=== PATIENT | male | born 1945 | race Two or more races ===

== ENCOUNTER 2019-02-23 17:33 | Inpatient (IN) | payer MEDICARE, MEDICAID ==
--- NOTE | 2018-03-13 18:30 | NUR ---
JANETTE DRAINAGE TOTAL DRAINAGE FOR THE SHIFT IS 160ML DARK GREEN FLUID. Addendum: 03/14/19 at 2004 by Isatu Morrow RN DISREGARD DATE CORRECT DATE IS 03/13/19
[~2019-02-23] VITALS: Ht 180.3 cm; Wt 69.1 kg
[2019-02-23 19:42] LABS: Basophils # (auto) 0 uL; Basophils % (auto) 0.4 % (0.0-2.0); Eosinophils # (auto) 0.2 uL; Eosinophils % (auto) 1.8 % (0.0-7.0); Hematocrit 29.1 % (41.0-53.0); Hemoglobin 9.6 g/dL (13.5-17.5); Lymphocytes # (auto) 0.9 uL; Lymphocytes % (auto) 7.2 % (10.0-50.0); Mean Corpuscular Hemoglobin 28.2 pg (28.0-32.0); Mean Corpuscular Volume 85.5 fL (80.0-100.0); Monocytes # (auto) 0.9 uL; Monocytes % (auto) 6.7 % (0.0-12.0); Neutrophils # (auto) 10.8 uL; Neutrophils % (auto) 83.9 % (37.0-80.0); Platelet Count (auto) 383 10^3/uL (140-450); Red Cell Distribution Width 15.1 % (11.8-14.3); White Blood Cell 12.9 10^3/uL (4.4-10.8)
[2019-02-23 20:00] LABS: Albumin 2.9 g/dL (3.4-5.0); Calcium 8.9 mg/dL (8.5-10.1)
[2019-02-23 20:03] LABS: BUN/Creatinine Ratio 19.8; Bilirubin, Total 0.5 mg/dL (0.2-1.0)
[2019-02-23] MEDS ORDERED: ONDANSETRON HCL 4 MG/2 ML VIAL IV ONE (20:15)
[2019-02-23] MEDS ORDERED: MORPHINE SULF INJ 2 MG/ML SYRINGE 1ML IV ONE (20:15)
[2019-02-23 21:06] LABS: Amylase 29 U/L (25-115); Lipase 62 U/L (73-393)
[2019-02-23] MEDS ORDERED: cefTRIAXone 1GM/50ML D5W 50 ML IV ONE (22:00)
[2019-02-23] MEDS ORDERED: PIPERACILLIN-TAZOB 3.375GM 100 ML IV ONE (22:00)
[2019-02-23] MEDS ORDERED: SODIUM CHLORIDE 0.9% 1,000 ML IV ONE (22:00)
[2019-02-24] MEDS: SODIUM CHLORIDE 0.9% 1,000 ML IV SCH ×2 (01:06→03:00)
[2019-02-24 02:44] VITALS: BP 127/67
--- NOTE | 2019-02-24 02:44 | NUR ---
PATIENT ARRIVED ON UNIT VIA WHEELCHAIR. HE WAS VERY UNSTEADY ON FEET SO HE WAS HELPED INTO BED. HE IS AO X 4 ON ROOM AIR. HAS COMPLAINTS OF PAIN IN THE LOWER RIGHT ABDOMEN BUT NO REQUEST FOR PAIN MEDICATION. HE IS AWARE OF HIS NPO STATUS. HE'S AWARE OF HIS CURRENT PLAN OF CARE. HE UNDERSTANDS TO USE CALL LIGHT IF IN NEED OF ASSISTANCE. WILL CONTINUE TO MONITOR.
[2019-02-24 02:50] VITALS: BP 127/67
[2019-02-24] MEDS: ACETAMINOPHEN 325 MG TAB PO PRN ×2 (03:00→13:46)
[2019-02-24] MEDS: metroNIDAZOLE 500MG/100ML 100 ML IV SCH ×3 (05:45→21:34)
--- NOTE | 2019-02-24 08:11 | NUR ---
opening patient in bed, asleep, family at bedside, no distress noted at this time. Current sodium 135 bun 22 Pending Surgical, GI, Hematology/oncology consults US of gallbladder is pending as well Will f/u with morning assessment and continue to monitor patient.
[2019-02-24 08:13] LABS: Basophils # (auto) 0.1 uL; Basophils % (auto) 0.9 % (0.0-2.0); Eosinophils # (auto) 0.1 uL; Eosinophils % (auto) 1.2 % (0.0-7.0); Hematocrit 26.4 % (41.0-53.0); Hemoglobin 8.7 g/dL (13.5-17.5); Lymphocytes # (auto) 1.1 uL; Lymphocytes % (auto) 9.2 % (10.0-50.0); Mean Corpuscular Hemoglobin 28.3 pg (28.0-32.0); Mean Corpuscular Volume 85.6 fL (80.0-100.0); Monocytes # (auto) 0.9 uL; Monocytes % (auto) 7.5 % (0.0-12.0); Neutrophils # (auto) 9.6 uL; Neutrophils % (auto) 81.2 % (37.0-80.0); Platelet Count (auto) 337 10^3/uL (140-450); Red Blood Cells 3.08 10^6/uL (4.5-5.90); Red Cell Distribution Width 14.9 % (11.8-14.3); White Blood Cell 11.8 10^3/uL (4.4-10.8)
[2019-02-24 08:21] LABS: BUN/Creatinine Ratio 18.4
[2019-02-24] MEDS: PANTOPRAZOLE 40 MG/10 ML VIAL IV SCH (08:59)
[2019-02-24 09:00] VITALS: BP 88/46
--- NOTE | 2019-02-24 10:40 | NUR ---
MD Maxwell rounding at bedside, discusses plan of care with digital marketing lead at bedside. Scans and tests are still needing to be completed consults are still pending Lori Flores and Hematology/Oncology All of which have been called per statistical secretary Lorena.
[2019-02-24] MEDS ORDERED: IOHEXOL 300 MG/ML 100ML BOTTLE IJ ONE (10:42)
--- NOTE | 2019-02-24 10:56 | NUR ---
nurse note patient going down for abdominal ct with contrast now
--- NOTE | 2019-02-24 10:57 | NUR ---
nuc med left a message for nuclear medicine in regards to finding an eta of the hida scan that's ordered
[2019-02-24 11:24] LABS: INR 1.07 (0.9-1.15); Partial Thromboplastin Time 31.1 sec (23.78-33.04); Prothrombin Time 11.4 sec (9.27-12.13)
[2019-02-24] MEDS ORDERED: OMEP20TA PO (12:15)
[2019-02-24] MEDS ORDERED: MIRT15TA3 PO (12:20)
[2019-02-24] MEDS ORDERED: REPA2TAB8 PO (12:20)
[2019-02-24] MEDS ORDERED: DORZ2SOL18 LEFTEYE (12:20)
[2019-02-24] MEDS ORDERED: GABA-339 PO (12:20)
--- NOTE | 2019-02-24 12:31 | NUR ---
md mary lou hobsoning
[2019-02-24 13:00] VITALS: BP 131/61
[2019-02-24 15:15] LABS: Urine Bacteria NONE SEEN /hpf (None Seen); Urine Blood Negative /uL (Negative); Urine Specific Gravity 1.023 (1.001-1.035); Urine WBC 1 /hpf (0 - 3)
[2019-02-24 17:00] VITALS: BP 97/46
--- NOTE | 2019-02-24 19:30 | NUR ---
OPENING SHIFT NOTE RECEIVED REPORT FROM DAYSHIFT RN. PATIENT RESTING COMFORTABLY IN BED WITH FAMILY MEMBER AT BEDSIDE. NO S/S OF DISTRESS OR SOB. NO PAIN NOTED OR REPORTED. PATIENT A/O X4, BEDREST. UPDATED PATIENT AND FAMILY ON POC, VERBALIZED UNDERSTANDING. BED LOCKED IN LOW POSITION, CALL LIGHT WITHIN REACH. WILL CONTINUE TO MONITOR PATIENT Q1HR AND PRN.
[2019-02-24 21:00] VITALS: BP 108/48
[2019-02-25] MEDS: cefTRIAXone 1GM/50ML D5W 50 ML IV SCH ×2 (00:04→23:51)
--- NOTE | 2019-02-25 04:17 | NUR ---
CRITICAL LAB VALUE PATIENT HAS POSITIVE BLOOD CULTURE, GRAM POSITIVE COCCI IN CLUSTERS. WILL PAGE HOSPITALIST
[2019-02-25 04:51] VITALS: BP 126/56
--- NOTE | 2019-02-25 05:00 | NUR ---
PAGED HOSPITALIST REGARDING POSITIVE BLOOD CULTURES, AWAITING CALL BACK.
--- NOTE | 2019-02-25 05:04 | NUR ---
HOSPITALIST RETURN PAGE UPDATED THERESA DUFF ON POSITIVE BLOOD CULTURES, RECEIVED NEW ORDER FOR VANCOMYCIN PER PHARMACY PROTOCOL. WILL FOLLOW THROUGH WITH ORDER.
[2019-02-25] MEDS ORDERED: VANCOMYCIN PER PHARMACY 0 MG IV SCH (05:15)
[2019-02-25] MEDS: metroNIDAZOLE 500MG/100ML 100 ML IV SCH ×3 (05:35→21:15)
[2019-02-25 06:08] LABS: % Iron Saturation 3.9 % (20-55)
--- NOTE | 2019-02-25 07:38 | NUR ---
Opening Patient awake in bed, bed in lowest position,call light within reach. No distress noted at this time. Lori Flores rounded last night per NOC nurse, Mark states he needs clearance for surgery (LAP CALIN/poss OPEN Calin). This is all documented in the hard chart by Lori Flores. No orders of surgery as of yet. Pending consult is for GI (Almas FLORES) this has been called yesterday morning, by receptionist secretary and is documented. Per noc nurse blood cultures have come back positive for GRAM POSITIVE COCCI IN CLUSTERS. This was called to investor relations director physician Jose Roberto Mendez new orders for Vancomycin starts this morning at 0800 Will continue to monitor the patient, and follow up with morning assessment.
[2019-02-25] MEDS: VANCOMYCIN 1,500 MG in D5W 5% 250 ML IV SCH (07:49)
[2019-02-25 07:55] LABS: Albumin 2.8 g/dL (3.4-5.0); BUN/Creatinine Ratio 16.8; Calcium 8.9 mg/dL (8.5-10.1); Potassium 4.2 mmol/L (3.5-5.1)
--- NOTE | 2019-02-25 07:55 | NUR ---
nurse note still awaiting hospitalist to continue home medications, inputted the medications yesterday on my shift.
[2019-02-25 07:58] LABS: Bilirubin, Total 0.5 mg/dL (0.2-1.0); Total Protein 6.8 g/dL (6.4-8.2)
[2019-02-25] MEDS: SODIUM CHLORIDE 0.9% 1,000 ML IV SCH ×3 (08:00→23:51)
[2019-02-25 09:00] VITALS: BP 126/55
[2019-02-25] MEDS: PANTOPRAZOLE 40 MG/10 ML VIAL IV SCH (09:07)
[2019-02-25] MEDS: ACETAMINOPHEN 325 MG TAB PO PRN (09:14)
--- NOTE | 2019-02-25 10:40 | NUR ---
PAGING Lori HOWARDING , TO GET CURRENT POC FOR THIS PATIENT. PER MD JASE DOWNING WAS NOT GOING TO DO SURGERY AT THIS TIME, NO RATIONALE PROVIDED.
[2019-02-25 13:00] VITALS: BP 99/42
[2019-02-25] MEDS: REPAGLINIDE 0.5 MG TAB PO SCH ×2 (13:31→18:00)
[2019-02-25] MEDS: GABAPENTIN 300 MG CAP PO SCH ×2 (13:32→21:15)
[2019-02-25] MEDS: DORZOLAMIDE HCL 2% OPTH(EYE) SOL 10ML OP SCH ×2 (15:46→21:15)
[2019-02-25 17:27] VITALS: BP 111/46
[2019-02-25] MEDS ORDERED: METF-929 PO (18:13)
--- NOTE | 2019-02-25 19:35 | NUR ---
OPENING SHIFT NOTE RECEIVED REPORT FROM DAYSHIFT RN. PATIENT RESTING COMFORTABLY IN BED WITH EYES CLOSED. NO S/S OF DISTRESS OR SOB. NO PAIN NOTED OR REPORTED. PATIENT A/O X4, BEDREST. UPDATED PATIENT ON POC, VERBALIZED UNDERSTANDING. BED LOCKED IN LOW POSITION, CALL LIGHT WITHIN REACH. WILL CONTINUE TO MONITOR PATIENT Q1HR AND PRN.
[2019-02-25 21:00] VITALS: BP 148/74
[2019-02-25] MEDS: MIRTAZAPINE 30 MG TAB PO SCH (21:14)
--- NOTE | 2019-02-25 22:10 | NUR ---
PAGED DR SIMMONS INFORMED MD THAT EKG WAS PERFORMED EARLIER TODAY FROM DAYSHIFT RN AND IS IN THE HARD CHART. MD VERBALIZED UNDERSTANDING AND STATED HE WILL BE IN TO LOOK AT EKG RESULT AND CLEAR PATIENT FOR SURGERY.
--- NOTE | 2019-02-26 00:10 | NUR ---
DR Olga DOWNING AT STATION UPDATED DR ON PATIENT STATUS AND CALL FROM DR SIMMONS SAYING HE WILL BE IN TO CLEAR PATIENT IN THE MORNING. DR DOWNING STATED HE WILL COME BACK TOMORROW (02/26) TO SEE PATIENT ONCE CLEARED AND TO POSSIBLY PROCEED WITH CHOLECYSTECTOMY.
[2019-02-26 05:00] VITALS: BP 122/57
[2019-02-26] MEDS: ACETAMINOPHEN 325 MG TAB PO PRN ×2 (05:15→23:09)
[2019-02-26] MEDS: metFORMIN HYDROCHLORIDE 500 MG TAB PO SCH ×2 (06:05→18:00)
[2019-02-26] MEDS: REPAGLINIDE 0.5 MG TAB PO SCH ×3 (06:31→18:06)
[2019-02-26] MEDS: metroNIDAZOLE 500MG/100ML 100 ML IV SCH ×3 (06:31→21:33)
[2019-02-26] MEDS: GABAPENTIN 300 MG CAP PO SCH ×3 (06:31→21:33)
[2019-02-26 06:43] LABS: Albumin 2.2 g/dL (3.4-5.0); Calcium 8.2 mg/dL (8.5-10.1); Potassium 3.9 mmol/L (3.5-5.1)
[2019-02-26 06:47] LABS: Bilirubin, Total 0.3 mg/dL (0.2-1.0); Total Protein 5.7 g/dL (6.4-8.2)
[2019-02-26 07:10] VITALS: BP 113/56
--- NOTE | 2019-02-26 07:40 | NUR ---
Opening Note Received report from general cargo clerk RN. Patient is resting in bed with eyes closed, easy to wake by calling name. No signs or symptoms of distress noted at this time. Patient denies pain at this time. Reviewed plan of care with patient, patient verbalized understanding. Bed in low and locked position, call light within reach. Will continue to monitor Q1 hour and PRN.
[2019-02-26] MEDS: SODIUM CHLORIDE 0.9% 1,000 ML IV SCH ×2 (08:00→16:00)
[2019-02-26 08:34] LABS: Ferritin 216.1 ng/mL (10-322)
[2019-02-26] MEDS: PANTOPRAZOLE 40 MG/10 ML VIAL IV SCH (09:52)
[2019-02-26] MEDS: VANCOMYCIN 1,500 MG in D5W 5% 250 ML IV SCH (09:52)
[2019-02-26] MEDS: DORZOLAMIDE HCL 2% OPTH(EYE) SOL 10ML OP SCH ×2 (09:58→21:33)
[2019-02-26 11:24] VITALS: BP 131/65
[2019-02-26] MEDS: SODIUM FERR GLUC 62.5MG/5ML 125 MG in SODIUM CHL 0.9% 100 ML IV SCH (13:30)
[2019-02-26] MEDS ORDERED: DEXTROSE (50%) 50ML SYRG IV PRN (14:00)
[2019-02-26] MEDS ORDERED: MORPHINE SULF INJ 2 MG/ML SYRINGE 1ML ONE (14:03)
--- NOTE | 2019-02-26 14:53 | NUR ---
Nutrition Assessment Notes please see attached link for complete assessment Est. Needs IBW [id number] kcal (25-30 kcal/kgBW), 78-101 gms pro (1.0-1.3gms/kgBW r/t severe hypoalb). Will continue to monitor pertinent labs and reassess nutrient need prn Addendum: 02/26/19 at [address] Amended: Links added.
--- NOTE | 2019-02-26 15:10 | NUR ---
Patient back from [facility] Scan
--- NOTE | 2019-02-26 15:27 | NUR ---
Family at bedside
[2019-02-26 16:27] VITALS: BP 129/63
[2019-02-26] MEDS: InsuLIN REG 1unit/0.01ml Soln (100units/ml) SC SCH ×2 (17:00→21:36)
[2019-02-26] MEDS: ACCU-CHEK COMFORT CURVE STRIP VI SCH ×2 (17:36→21:34)
--- NOTE | 2019-02-26 19:05 | NUR ---
Closing Note Report given to cost estimating manager RN. No signs or symptoms of distress noted at this time.
[2019-02-26] MEDS: MIRTAZAPINE 30 MG TAB PO SCH (21:33)
[2019-02-26 22:00] VITALS: BP 138/63
--- NOTE | 2019-02-26 22:55 | NUR ---
DR DOWNING IN TO SEE PATIENT UPDATED MD ON PATIENT STATUS. INFORMED MD PATIENT HAS BEEN CLEARED BY CARDIOLOGY FOR SURGERY. DR DOWNING STATED "I WILL NOT BE ABLE TO PERFORM SURGERY TOMORROW, MORE THAN LIKELY ON TUESDAY". THEN INFORMED PATIENT IS STILL NPO, RECEIVED NEW ORDER FOR CLEAR LIQUID DIET. WILL FOLLOW THROUGH.
[2019-02-27] MEDS: SODIUM CHLORIDE 0.9% 1,000 ML IV SCH ×3 (00:08→16:00)
[2019-02-27] MEDS: cefTRIAXone 1GM/50ML D5W 50 ML IV SCH (00:08)
[2019-02-27 05:00] VITALS: BP 141/77
[2019-02-27] MEDS: REPAGLINIDE 0.5 MG TAB PO SCH ×3 (06:28→17:00)
[2019-02-27] MEDS: GABAPENTIN 300 MG CAP PO SCH ×3 (06:28→22:37)
[2019-02-27] MEDS: metFORMIN HYDROCHLORIDE 500 MG TAB PO SCH ×2 (06:33→17:13)
[2019-02-27] MEDS: metroNIDAZOLE 500MG/100ML 100 ML IV SCH ×3 (06:34→22:36)
[2019-02-27] MEDS: InsuLIN REG 1unit/0.01ml Soln (100units/ml) SC SCH ×4 (06:34→22:00)
[2019-02-27] MEDS: ACCU-CHEK COMFORT CURVE STRIP VI SCH ×4 (06:34→22:37)
--- NOTE | 2019-02-27 07:25 | NUR ---
Opening Note Received report from maintenance technician 3rd shift RN. Patient is awake,alert and oriented x4. No signs or symptoms of distress noted at this time. Patient denies pain at this time. Reviewed plan of care with patient, patient verbalized understanding. Bed in low and locked position, call light within reach. Will continue to monitor Q1 hour and PRN.
[2019-02-27 08:00] VITALS: BP 130/53
[2019-02-27] MEDS: VANCOMYCIN 1,500 MG in D5W 5% 250 ML IV SCH (08:51)
[2019-02-27] MEDS: PANTOPRAZOLE 40 MG/10 ML VIAL IV SCH (08:51)
[2019-02-27] MEDS: DORZOLAMIDE HCL 2% OPTH(EYE) SOL 10ML OP SCH ×2 (08:52→22:36)
--- NOTE | 2019-02-27 11:39 | NUR ---
DR. Olman LAGUNA AT BEDSIDE Dr. Olman Laguna at bedside reviewing plan of care with patient and family.
[2019-02-27 12:00] VITALS: BP 139/70
--- NOTE | 2019-02-27 12:06 | NUR ---
Called pharmacy regarding patients 1200 medication Ferrlecit. Pharmacy states they will send up medication.
[2019-02-27] MEDS: SODIUM FERR GLUC 62.5MG/5ML 125 MG in SODIUM CHL 0.9% 100 ML IV SCH (12:22)
[2019-02-27 16:00] VITALS: BP 120/59
--- NOTE | 2019-02-27 19:15 | NUR ---
Closing Note Report given to mini shifter RN. Patient resting in bed. No signs or symptoms of distress noted at this time.
--- NOTE | 2019-02-27 21:00 | NUR ---
DR DOWNING AT BEDSIDE IN TO SEE PATIENT, UPDATED MD ON PATIENT STATUS, FLUCTUATING AND ELEVATED TEMPERATURE, ELEVATED PULSE, PER MD DOWNING HE STATES "I WILL TALK TO DR LAGUNA AND SEE IF HE CAN BE CLEARED BEFORE I OPERATE, HOLD OFF ON GETTING CONSENTS SIGNED UNTIL I FIND OUT MORE FROM DR LAGUNA TOMORROW". WILL FOLLOW THROUGH AND CONTINUE TO MONITOR PATIENT.
[2019-02-27 22:00] VITALS: BP 129/59
[2019-02-27] MEDS: MIRTAZAPINE 30 MG TAB PO SCH (22:37)
[2019-02-28] MEDS: SODIUM CHLORIDE 0.9% 1,000 ML IV SCH ×3 (00:23→16:00)
[2019-02-28] MEDS: cefTRIAXone 1GM/50ML D5W 50 ML IV SCH (00:23)
[2019-02-28 05:00] VITALS: BP 125/63
[2019-02-28] MEDS: ACETAMINOPHEN 325 MG TAB PO PRN (05:12)
[2019-02-28] MEDS: GABAPENTIN 300 MG CAP PO SCH ×3 (05:44→21:41)
[2019-02-28] MEDS: metFORMIN HYDROCHLORIDE 500 MG TAB PO SCH ×2 (05:44→18:00)
[2019-02-28] MEDS: REPAGLINIDE 0.5 MG TAB PO SCH ×3 (05:45→17:00)
[2019-02-28] MEDS: ACCU-CHEK COMFORT CURVE STRIP VI SCH ×4 (06:15→21:46)
[2019-02-28] MEDS: InsuLIN REG 1unit/0.01ml Soln (100units/ml) SC SCH ×4 (06:15→22:48)
[2019-02-28] MEDS: metroNIDAZOLE 500MG/100ML 100 ML IV SCH (06:15)
[2019-02-28 08:03] LABS: Albumin 2.1 g/dL (3.4-5.0); Calcium 7.7 mg/dL (8.5-10.1)
[2019-02-28 08:06] LABS: BUN/Creatinine Ratio 7.7
[2019-02-28 08:09] LABS: Bilirubin, Total 0.3 mg/dL (0.2-1.0); Total Protein 5.2 g/dL (6.4-8.2)
[2019-02-28 08:12] LABS: Potassium 2.7 mmol/L (3.5-5.1)
--- NOTE | 2019-02-28 08:15 | NUR ---
Critical lab Critical potassium level 2.7. Hospitalist paged
--- NOTE | 2019-02-28 08:32 | NUR ---
Call from hospitalist New orders for Potassium 40meq now and recheck lab at 1200. Noted and carried out. Will continue to monitor.
[2019-02-28] MEDS ORDERED: POTASSIUM CHL 20 Meq TABLET PO ONE (08:45)
[2019-02-28] MEDS: VANCOMYCIN 1,500 MG in D5W 5% 250 ML IV SCH (08:56)
[2019-02-28] MEDS: PANTOPRAZOLE 40 MG/10 ML VIAL IV SCH (08:56)
[2019-02-28] MEDS: DORZOLAMIDE HCL 2% OPTH(EYE) SOL 10ML OP SCH ×2 (08:56→21:40)
[2019-02-28 09:00] VITALS: BP 123/56
[2019-02-28] MEDS ORDERED: LEVOFLOXACIN 500MG 100 ML IV ONE (10:30)
[2019-02-28] MEDS: SODIUM FERR GLUC 62.5MG/5ML 125 MG in SODIUM CHL 0.9% 100 ML IV SCH (12:00)
[2019-02-28 12:19] LABS: Basophils # (auto) 0 uL; Basophils % (auto) 0.3 % (0.0-2.0); Eosinophils # (auto) 0.1 uL; Eosinophils % (auto) 1.2 % (0.0-7.0); Hematocrit 29.8 % (41.0-53.0); Hemoglobin 9.6 g/dL (13.5-17.5); Lymphocytes # (auto) 0.9 uL; Lymphocytes % (auto) 7.1 % (10.0-50.0); Mean Corpuscular Hemoglobin 27.9 pg (28.0-32.0); Mean Corpuscular Hgb Conc. 32.1 g/dL (32.0-36.0); Mean Corpuscular Volume 86.8 fL (80.0-100.0); Monocytes # (auto) 1.1 uL; Monocytes % (auto) 8.7 % (0.0-12.0); Neutrophils % (auto) 82.7 % (37.0-80.0); Platelet Count (auto) 408 10^3/uL (140-450); Red Blood Cells 3.43 10^6/uL (4.5-5.90); Red Cell Distribution Width 15.6 % (11.8-14.3); White Blood Cell 12.1 10^3/uL (4.4-10.8)
[2019-02-28 12:52] LABS: Albumin 2.2 g/dL (3.4-5.0); Bilirubin, Total 0.4 mg/dL (0.2-1.0); Calcium 8.1 mg/dL (8.5-10.1); Total Protein 5.8 g/dL (6.4-8.2)
[2019-02-28 13:00] VITALS: BP 137/66
[2019-02-28 13:57] LABS: Potassium 3.1 mmol/L (3.5-5.1)
--- NOTE | 2019-02-28 15:11 | NUR ---
Nutrition Follow-up Notes Wt.: 68.8 kg as of yesterday. Pt's asleep, no immediate family member at bedside when rounded this morning. Pt's no signs of distress noted earlier, on Clear Liquid diet, noted NPO after midnight for possible procedure, per nursing and noted for active Surgical, Cardiology and Gunnar/Oncology consults. Est. Needs IBW [id number] kcal (25-30 kcal/kgBW), 78-101 gms pro (1.0-1.3gms/kgBW r/t severe hypoalb). Will continue to monitor pertinent labs and reassess nutrient need prn Labs: Gluc 109 H, Cl 108 H, K 2.7 L, BUN 5 L, Cr 0.05 L, Ca 7.7 L, ALT 14 L, Tpro 5.2 L, Alb 2.1 L; HbA1c 6.7 H Skin: Lencho scale 16, mod risk, skin intact per market researcher. GI: Pt had 1 BM yesterday per market researcher. PES: Increased nutrient needs r/t current/chronic medical/nutritional status aeb underwt reporting wt loss, severe hypoalbuminemia and NPO Altered nutrition related lab values r/t current/chronic medical condition aeb hyperglycemia, hyperchloremia, hypokalemia, hypocalcemia, severe hypoalbuminemia and elev. Hba1c level. Will continue to monitor PO intake/NPO status, skin status, pertinent labs and weight trend. F/u in 2 to 3 days. Rec.: 1.) Advance oral diet when medically appropriate. 2.) If Albumin level continues trending down, consider Prostat 1 pkt BID. 3.) Continue close supervision during meals. 4.) Refer pt to CDE/RD for further nutrition education and weight monitoring upon discharge. 5.) Continue current plan of care.
[2019-02-28 17:00] VITALS: BP 126/62
--- NOTE | 2019-02-28 19:30 | NUR ---
Opening shift note Patient in bed sleeping with eyes closed, easily arousable to verbal stimuli. Patient oriented x 4, verbally coherent, able to make needs known. Patient's respiration even and unlabored, denies pain and discomfort at this time. Plan of care discussed. Patient verbalized understanding. All needs attended, will continue to monitor.
[2019-02-28] MEDS: MIRTAZAPINE 30 MG TAB PO SCH (21:42)
[2019-02-28 22:00] VITALS: BP 102/53
[2019-03-01] VITALS (36 sets, daily range): BP systolic 75–173; BP diastolic 39–105
[2019-03-01] MEDS ORDERED: VANCOMYCIN 1GM/250ML 250 ML IV SCH (01:00)
[2019-03-01] MEDS: GABAPENTIN 300 MG CAP PO SCH ×3 (06:00→22:00)
[2019-03-01] MEDS: metFORMIN HYDROCHLORIDE 500 MG TAB PO SCH ×2 (06:29→18:00)
[2019-03-01] MEDS: ACCU-CHEK COMFORT CURVE STRIP VI SCH ×3 (06:30→17:00)
[2019-03-01] MEDS: InsuLIN REG 1unit/0.01ml Soln (100units/ml) SC SCH ×3 (06:30→17:00)
[2019-03-01] MEDS: REPAGLINIDE 0.5 MG TAB PO SCH ×3 (06:30→17:00)
[2019-03-01 06:51] LABS: Basophils # (auto) 0 uL; Basophils % (auto) 0.4 % (0.0-2.0); Eosinophils # (auto) 0.1 uL; Eosinophils % (auto) 1.1 % (0.0-7.0); Hematocrit 27.2 % (41.0-53.0); Hemoglobin 9.1 g/dL (13.5-17.5); Lymphocytes # (auto) 0.8 uL; Lymphocytes % (auto) 7.3 % (10.0-50.0); Mean Corpuscular Hemoglobin 28.2 pg (28.0-32.0); Mean Corpuscular Hgb Conc. 33.6 g/dL (32.0-36.0); Monocytes # (auto) 0.8 uL; Neutrophils % (auto) 84.2 % (37.0-80.0); Platelet Count (auto) 416 10^3/uL (140-450); Red Blood Cells 3.24 10^6/uL (4.5-5.90); Red Cell Distribution Width 15.4 % (11.8-14.3); White Blood Cell 10.7 10^3/uL (4.4-10.8)
--- NOTE | 2019-03-01 06:55 | NUR ---
CHG wipes done. Brought patient down to preop/ Ksenia via stretcher/bed with 2 assist. Patient in stable condition.
[2019-03-01] MEDS ORDERED: ceFAZolin 1GM/50ML 50 ML IV ONE (07:22)
--- NOTE | 2019-03-01 07:40 | NUR ---
opening patient is currently down in preop. Will f/u with morning assessment when patient returns. Patient is having an open cholecystectomy with MD Flores this morning Per the noc nurse the checklist completed but consents not signed, as the doctor had not discussed procedure with the patient. Current/last potassium level 3.1 will endorse to hospitalist
[2019-03-01] MEDS ORDERED: POTASSIUM CHL 20MEQ/100ML 100 ML IV ONE (07:48)
[2019-03-01] MEDS ORDERED: SUCCINYLCHOLINE CHLORIDE 20 MG/ML 10ML VIAL IV ONE (08:00)
[2019-03-01] MEDS ORDERED: MIDAZOLAM HCL 1MG/1ML-2 ML VIAL ONE ×2 (08:04→10:55)
[2019-03-01] MEDS ORDERED: MEPERIDINE HCL (50 MG/ML) 1 ML VIAL ONE (08:04)
[2019-03-01] MEDS ORDERED: fentaNYL CITRATE 100 MCG/2 ML VL ONE (08:04)
--- NOTE | 2019-03-01 08:04 | NUR ---
potassium 4.17.19 3.1 40 meq was given yesterday, no new lab draw to get current result for today.
[2019-03-01] MEDS ORDERED: DexAMETHasone SOD PHOS 10MG/1ML VIAL INJ ONE (08:05)
[2019-03-01] MEDS ORDERED: PROPOFOL 10 MG/ML 20 ML IV ONE (08:54)
[2019-03-01] MEDS ORDERED: ROCURONIUM 10MG/ML 10ML VIAL IV ONE (08:54)
[2019-03-01] MEDS ORDERED: GLYCOPYRROLATE 0.2 MG/ML 1ML VIAL ONE (10:00)
[2019-03-01] MEDS ORDERED: PHENYLEPHRINE HCL 10 MG/ML VL ONE (10:00)
[2019-03-01] MEDS ORDERED: NEOSTIGMINE 1 MG/ML INJ (10mg/10ML VIAL) ONE (10:00)
[2019-03-01] MEDS ORDERED: LEVOFLOXACIN 500MG 100 ML IV SCH (10:00)
[2019-03-01] MEDS: PANTOPRAZOLE 40 MG/10 ML VIAL IV SCH (10:00)
[2019-03-01] MEDS: DORZOLAMIDE HCL 2% OPTH(EYE) SOL 10ML OP SCH ×2 (10:00→22:00)
[2019-03-01] MEDS ORDERED: NOREPINEPHRINE 8 MG/250ML KIT 250 ML IV STA (10:42)
[2019-03-01] MEDS ORDERED: NOREPINEPHRINE 8 MG/250ML KIT 250 ML IV ONE (10:45)
[2019-03-01] MEDS ORDERED: CALCIUM CHLOR(10%) 100MG/ML 10ML SYRINGE IV ONE (11:01)
[2019-03-01] MEDS ORDERED: SODIUM BICARBONATE 8.4 % INJ 50ML VIAL IV ONE ×2 (11:42→23:30)
[2019-03-01] MEDS ORDERED: MORPHINE SULFATE 4 MG/ML SYR/VIAL IV ONE (12:00)
[2019-03-01] MEDS ORDERED: ePHEDrine SULFATE 50 MG/ML AMP IV PRN (12:00)
[2019-03-01] MEDS ORDERED: ACCU-CHEK COMFORT CURVE STRIP VI ONE (12:00)
[2019-03-01] MEDS ORDERED: ONDANSETRON HCL 4 MG/2 ML VIAL IV ONE (12:00)
[2019-03-01] MEDS ORDERED: HYDROmorphone HCL 2 MG/ML VL IV PRN (12:00)
[2019-03-01] MEDS ORDERED: fentaNYL CITRATE 100 MCG/2 ML VL IV ONE (12:00)
[2019-03-01] MEDS ORDERED: MORPHINE SULFATE 4 MG/ML SYR/VIAL IV PRN (12:00)
[2019-03-01] MEDS: SODIUM FERR GLUC 62.5MG/5ML 125 MG in SODIUM CHL 0.9% 100 ML IV SCH (12:00)
[2019-03-01] MEDS ORDERED: MIDAZOLAM DRIP 50 mg/50mL 50 ML IV ONE (12:09)
[2019-03-01] MEDS: metroNIDAZOLE 500MG/100ML 100 ML IV SCH ×2 (14:00→22:00)
[2019-03-01] MEDS: SODIUM CHLORIDE 0.9% 1,000 ML IV SCH ×3 (14:00→16:00)
[2019-03-01] MEDS: MIDAZOLAM DRIP 50 mg/50mL 50 ML IV SCH (16:00)
--- NOTE | 2019-03-01 17:25 | NUR ---
PATIENT RECEIVED FROM OR -ON LEVOPHED AND VERSED. DR. SÁNCHEZ AT BEDSIDE. FENTANYL ORDER OBTAINED PATIENT IN PAIN. SURGICAL INCISION SITE COVERED WITH ADAPTIVE DRESSING, DERMABOND, MARIBEL, AND COVERED WITH PRIMAPORE DRESSING. PATIENT TACHYCARDIC. STARTED FENTANYL.
--- NOTE | 2019-03-01 17:29 | NUR ---
Respiratory note: TRANSPORTED PT TO ICU 104 FROM RECOVERY AT THIS TIME, PLACED PT BACK ON ORIGINALLY ORDERED SETTINGS OF AC RR 16 VT 500 PEEP 5 FIO2 35%, NO COMPLICATIONS, RN AT BEDSIDE
[2019-03-01] MEDS ORDERED: fentaNYL Drip 2500mCg/250mlNS 250 ML IV ONE (17:48)
[2019-03-01] MEDS: fentaNYL Drip 2500mCg/250mlNS 250 ML IV SCH (17:58)
[2019-03-01] MEDS: PIPERACILLIN-TAZOB 3.375GM 100 ML IV SCH (18:00)
--- NOTE | 2019-03-01 18:34 | NUR ---
Non-admin glucophage pt on insulin.
--- NOTE | 2019-03-01 19:43 | NUR ---
BEDSIDE REPORT GIVEN TO OLI NAQVI.
[2019-03-01 20:48] LABS: Hematocrit 40.7 % (41.0-53.0); Hemoglobin 13.4 g/dL (13.5-17.5); Mean Corpuscular Hemoglobin 28.9 pg (28.0-32.0); Mean Corpuscular Hgb Conc. 32.8 g/dL (32.0-36.0); Platelet Count (auto) 348 10^3/uL (140-450); Red Blood Cells 4.62 10^6/uL (4.5-5.90); Red Cell Distribution Width 15.1 % (11.8-14.3)
[2019-03-01 20:53] LABS: White Blood Cell 30.3 10^3/uL (4.4-10.8)
[2019-03-01 20:54] LABS: Band Neutrophils % (manual) 0; Basophils % (manual) 0 (0.0-2.0); Blast Cells 0; Eosinophils % (manual) 0 (0-7); Metamyelocytes % 0; Myelocytes % 0; Promyelocytes % 0; Reactive Lymphocytes 0
[2019-03-01 20:55] LABS: Calcium 8.1 mg/dL (8.5-10.1)
[2019-03-01 20:56] LABS: INR 1.44 (0.9-1.15); Prothrombin Time 15.1 sec (9.27-12.13)
[2019-03-01 20:58] LABS: BUN/Creatinine Ratio 11.3
[2019-03-01 21:43] LABS: Lymphocytes % (manual) 6 (10.0-50.0); Monocytes % (manual) 1 (0-12)
[2019-03-01] MEDS: MIRTAZAPINE 30 MG TAB PO SCH (22:00)
[2019-03-01] MEDS ORDERED: SODIUM BICARBONATE 8.4% INJ 50ML SYRINGE ONE (23:38)
[2019-03-02] VITALS (100 sets, daily range): BP systolic 80–182; BP diastolic 38–83
--- NOTE | 2019-03-02 00:06 | NUR ---
Respiratory note: ADVANCED ETT 2CM TO 23CM AT THE LIP
[2019-03-02] MEDS: InsuLIN REG 1unit/0.01ml Soln (100units/ml) SC SCH ×6 (00:16→23:45)
[2019-03-02] MEDS: ACCU-CHEK COMFORT CURVE STRIP VI SCH ×6 (00:16→23:45)
[2019-03-02] MEDS: PIPERACILLIN-TAZOB 3.375GM 100 ML IV SCH ×5 (00:40→23:36)
[2019-03-02] MEDS: SODIUM CHLORIDE 0.9% 1,000 ML IV SCH ×5 (03:30→23:25)
[2019-03-02 03:45] LABS: Hematocrit 34.7 % (41.0-53.0); Hemoglobin 11.6 g/dL (13.5-17.5); Mean Corpuscular Hemoglobin 28.9 pg (28.0-32.0); Mean Corpuscular Hgb Conc. 33.4 g/dL (32.0-36.0); Mean Corpuscular Volume 86.3 fL (80.0-100.0); Platelet Count (auto) 303 10^3/uL (140-450); Red Blood Cells 4.02 10^6/uL (4.5-5.90); Red Cell Distribution Width 14.6 % (11.8-14.3); White Blood Cell 21.2 10^3/uL (4.4-10.8)
[2019-03-02 04:03] LABS: Basophils % (manual) 0 (0.0-2.0); Blast Cells 0; Eosinophils % (manual) 0 (0-7); Metamyelocytes % 0; Myelocytes % 0; Promyelocytes % 0; Reactive Lymphocytes 0
[2019-03-02 04:34] LABS: Albumin 1.6 g/dL (3.4-5.0)
[2019-03-02 04:39] LABS: Bilirubin, Total 0.5 mg/dL (0.2-1.0); Total Protein 4.5 g/dL (6.4-8.2)
[2019-03-02 04:47] LABS: BUN/Creatinine Ratio 12.5
[2019-03-02 04:48] LABS: Calcium 7.5 mg/dL (8.5-10.1); Potassium 3.6 mmol/L (3.5-5.1)
[2019-03-02] MEDS: GABAPENTIN 300 MG CAP PO SCH ×3 (06:00→22:08)
[2019-03-02] MEDS: metroNIDAZOLE 500MG/100ML 100 ML IV SCH ×3 (06:09→22:03)
[2019-03-02] MEDS: REPAGLINIDE 0.5 MG TAB PO SCH ×3 (06:09→16:35)
[2019-03-02] MEDS: metFORMIN HYDROCHLORIDE 500 MG TAB PO SCH ×2 (06:13→16:35)
[2019-03-02 06:49] LABS: Band Neutrophils % (manual) 13; Lymphocytes % (manual) 13 (10.0-50.0); Monocytes % (manual) 3 (0-12)
--- NOTE | 2019-03-02 08:00 | NUR ---
OPEN RECEIVED REPORT FROM NIGHT RN, DRISS. ASSUMED CARE OF ICU PATIENT, FULL CODE STATUS. PATIENT SEDATED ON VENT. CURRENT FIO2 ON VENT IS 30%. #7.5 ETT, 23 CM AT LIP. LEFT ALAS NGT TO LIS. PATIENT HAS X1 JANETTE DRAIN, DRAINING BROWNISH VISCOUS FLUID, CURRENTLY TO BULB SUCTION. INCISION DRESSING C,D,I. ABD. BINDER IN PLACE. RAI TO GRAVITY. RIGHT RADIAL A-LINE PATENT, AND ZEROED AT THIS TIME. SKIN INTACT TO SACRAL AREA, PINK BLANCHABLE. WILL CONTINUE TO TURN PATIENT Q2HRS AND PRN. OFF LOADING PRESSURE AREAS WITH PILLOWS. SHERICE HEEL PINK, YET BLANCHABLE. SEE IV FLOW SHEET AND ELECTRON BEAM WELDER FOR FURTHER PATIENT INFORMATION. CONTINUE CARE.
--- NOTE | 2019-03-02 09:00 | NUR ---
DR. Olman LAGUNA AT BEDSIDE: ORDERS MD UPDATED ON PT'S STATUS, LABS AND POC FOR TODAY. ORDERS GIVEN AND TO BE CARRIED OUT. WILL CONTINUE NS AT 200 ML/HR. NO CPAP ORDERED FOR TODAY. CONTINUE CARE.
[2019-03-02] MEDS ORDERED: DEXTROSE (50%) 50ML SYRG IV PRN (09:30)
[2019-03-02] MEDS: fentaNYL Drip 2500mCg/250mlNS 250 ML IV SCH (09:59)
[2019-03-02] MEDS: PANTOPRAZOLE 40 MG/10 ML VIAL IV SCH (10:00)
[2019-03-02] MEDS: DORZOLAMIDE HCL 2% OPTH(EYE) SOL 10ML OP SCH ×2 (10:00→22:17)
[2019-03-02] MEDS: MIDAZOLAM DRIP 50 mg/50mL 50 ML IV SCH (11:18)
--- NOTE | 2019-03-02 12:11 | NUR ---
Nutrition Follow-up Notes Wt.: 75.0 kg Pt's intubated sedated with no family by bedside. per records pt s/p lap pal yesterday. pt is currently NPO. per RN no new diet orders. per RN pt possible CPAP tomorrow. RN informed of diet rec per MD approval Est. Needs IBW [id number] kcal (25-30 kcal/kgBW), 78-101 gms pro (1.0-1.3gms/kgBW r/t severe hypoalb). Will continue to monitor pertinent labs and reassess nutrient need prn Labs: GLU 336 H, CA 7.5 L, ALB 1.6 L. Skin: Lencho scale 13, mod risk, incision at site of sx per machine sweeper brush maker. GI: Pt had 1 BM on 03/01 per machine sweeper brush maker. PES: Increased nutrient needs r/t current/chronic medical/nutritional status aeb underwt reporting wt loss, severe hypoalbuminemia and NPO Altered nutrition related lab values r/t current/chronic medical condition aeb hyperglycemia, hyperchloremia, hypokalemia, hypocalcemia, severe hypoalbuminemia and elev. Hba1c level. Will continue to monitor NPO status, skin status, pertinent labs and weight trend. F/u in 2 to 3 days. Rec.: 1.) Advance oral diet when medically appropriate. 2.) If Albumin level continues trending down, consider Prostat 1 pkt BID. 3.) Consider PN support to meet > 75% of needs if pt continues to be NPO and GI is not accessible. 4.) Refer pt to CDE/RD for further nutrition education and weight monitoring upon discharge. 5.) Continue current plan of care.
--- NOTE | 2019-03-02 13:12 | NUR ---
Midline Placement: Patient educated on need for midline placement. All risks and benefits explained and all questions and concerns addresses prior to procedure. 18g/10cm midline inserted via left basilic vein using Ultrasound. Sterile technique utilized. Blood return obtained from the lumen and flushed easily with NS using proper technique. Midline secured with saline lock; biodisc and occlusive dressing applied. Primary RN notified. Midline lot # [id number]. Blood return present upon removing the wire/needle. The end of the catheter is sitting against a biforcation. Flushes very easily. x1 attempt
--- NOTE | 2019-03-02 13:32 | NUR ---
assessment Patient is a 73 year old old male who is on a vent. Per patients sister Alexa prior to admission patient lived home with her and functioned with her assistance. Per Alexa she is patients SS caregiver. Per Alexa patient has a fww and a cane for home use. Per Alexa patients PCP is Dr Mares. Patient has no advanced directive or POA. I informed Alexa patients post discharge needs to be determined prior to discharge and after extubation. Alexa verbalized understanding. Addendum: 03/02/19 at 1340 by Irene HOWE Amended: Links added.
[2019-03-02] MEDS: SODIUM FERR GLUC 62.5MG/5ML 125 MG in SODIUM CHL 0.9% 100 ML IV SCH (14:19)
[2019-03-02] MEDS ORDERED: METOPROLOL TARTRATE 1MG/1ML-5ML VIAL IV ONE ×2 (15:48→16:30)
[2019-03-02] MEDS ORDERED: METOPROLOL TARTRATE 1MG/1ML-5ML VIAL IV PRN ×2 (16:30→16:45)
[2019-03-02 17:25] LABS: Magnesium 1.3 mg/dL (1.6-2.6); Potassium 3.2 mmol/L (3.5-5.1)
--- NOTE | 2019-03-02 18:00 | NUR ---
PATIENT NOT TURNED AT THIS TIME: UNSTABLE PATIENT HEMODYNAMICALLY UNSTABLE, SEE IV FLOW SHEET AND VS. PATIENTS BP VERY LIABLE. RANGING FROM 220 MMHG SBP TO 70'S SYSTOLICALLY. DR. Olga DOWNING MADE AWARE. CONTINUE CARE.
[2019-03-02] MEDS: MAGNESIUM SULFATE 1GM/100ML 100 ML IV SCH ×2 (19:00→21:59)
--- NOTE | 2019-03-02 19:30 | NUR ---
Opening Note; Received report, assumed care of male patient on sedation/vent 7.5 25@ lip, vent settings: AC, FiO2 30%, rate 16, vT 500, peep 5. Left reveles NGT to LIS, 0mL at this time however I did aspirate 30mL of from NG tube prior to checking for proper placement, placement confirmed. JANETTE drain noted with brown viscous fluid noted, binder in place. Right radial A-line noted, zeroed at this time and line flushed. Skin in tact, sacral area pink/blanchable. Per report patient very sensitive to turning - major changes in vital signs. Vital signs WNL at this time, see interventions for further assessment, See IV spreadsheet for further drip rates. Patient turned slightly to right side with pillows to back side. Continue to monitor.
[2019-03-02] MEDS: POTASSIUM CHL 20MEQ/100ML 100 ML IV SCH ×2 (20:09→23:24)
[2019-03-02] MEDS: MIRTAZAPINE 30 MG TAB PO SCH (22:08)
--- NOTE | 2019-03-02 22:10 | NUR ---
JANETTE drain bulb drained; 60mL drained.
[2019-03-03] VITALS (102 sets, daily range): BP systolic 84–179; BP diastolic 48–114
--- NOTE | 2019-03-03 00:54 | NUR ---
Sedation/Positioning Patient tolerating turns from supine to Right side. Sedation; versed titrated down to 4mg/hr
--- NOTE | 2019-03-03 01:00 | NUR ---
ELVIA BOOTS APPLIED TO BILAT FEET.
[2019-03-03] MEDS: fentaNYL Drip 2500mCg/250mlNS 250 ML IV SCH (01:43)
--- NOTE | 2019-03-03 03:00 | NUR ---
JANETTE DRAIN; 40mL OF BROWN VISCOUS FLUID REMOVED.
--- NOTE | 2019-03-03 03:41 | NUR ---
BLOOD OBTAINED FROM LINE AND HANDED OFF TO BIKE TECHNICIAN. LINE FLUSHED
--- NOTE | 2019-03-03 03:56 | NUR ---
Patient repositioned HR 101, systolic BP 190. At this time Levophed turned off. Versed drip still running at 2mg/hr, Fent drip increased to 125mcg/hr.
[2019-03-03] MEDS: InsuLIN REG 1unit/0.01ml Soln (100units/ml) SC SCH ×5 (04:06→20:00)
[2019-03-03] MEDS: ACCU-CHEK COMFORT CURVE STRIP VI SCH ×5 (04:06→20:00)
[2019-03-03 04:11] LABS: Basophils # (auto) 0 uL; Basophils % (auto) 0.1 % (0.0-2.0); Eosinophils # (auto) 0 uL; Hematocrit 28.9 % (41.0-53.0); Lymphocytes # (auto) 1.5 uL; Lymphocytes % (auto) 5.9 % (10.0-50.0); Mean Corpuscular Hemoglobin 29.6 pg (28.0-32.0); Mean Corpuscular Hgb Conc. 34.6 g/dL (32.0-36.0); Mean Corpuscular Volume 85.5 fL (80.0-100.0); Monocytes # (auto) 0.8 uL; Monocytes % (auto) 3.3 % (0.0-12.0); Neutrophils # (auto) 22.6 uL; Neutrophils % (auto) 90.7 % (37.0-80.0); Nucleated Red Blood Cells % 0.2 %; Platelet Count (auto) 286 10^3/uL (140-450); Red Blood Cells 3.38 10^6/uL (4.5-5.90); Red Cell Distribution Width 14.7 % (11.8-14.3)
[2019-03-03] MEDS: SODIUM CHLORIDE 0.9% 1,000 ML IV SCH ×5 (04:14→20:00)
--- NOTE | 2019-03-03 04:18 | NUR ---
LEVOPHED RE-STARTED, BP DOWN TO 98 mmHg SYSTOLIC.
[2019-03-03 04:29] LABS: Albumin 1.4 g/dL (3.4-5.0); Calcium 6.6 mg/dL (8.5-10.1); Potassium 3.3 mmol/L (3.5-5.1)
[2019-03-03 04:34] LABS: BUN/Creatinine Ratio 14.8; Bilirubin, Total 0.3 mg/dL (0.2-1.0)
--- NOTE | 2019-03-03 04:50 | NUR ---
Levophed titrated down to 1mcg/min.
--- NOTE | 2019-03-03 05:05 | NUR ---
Versed drip off.
--- NOTE | 2019-03-03 05:07 | NUR ---
K level of 3.3, THERESA codyd.
[2019-03-03] MEDS: metroNIDAZOLE 500MG/100ML 100 ML IV SCH ×3 (05:32→22:27)
--- NOTE | 2019-03-03 05:32 | NUR ---
JANETTE DRAIN 50mL REMOVED.
--- NOTE | 2019-03-03 05:41 | NUR ---
NEW ORDERS; 40 mEq IV ONCE PER CARE ATTENDANT JUNE ORDER REPEATED BACK AND CONFIRMED.
[2019-03-03] MEDS ORDERED: POTASSIUM CHL 20MEQ/100ML 100 ML IV ONE ×2 (05:45→07:59)
[2019-03-03] MEDS: GABAPENTIN 300 MG CAP PO SCH ×3 (05:46→22:27)
[2019-03-03] MEDS: PIPERACILLIN-TAZOB 3.375GM 100 ML IV SCH ×3 (06:18→17:49)
[2019-03-03] MEDS: REPAGLINIDE 0.5 MG TAB PO SCH ×3 (06:31→17:49)
[2019-03-03] MEDS: metFORMIN HYDROCHLORIDE 500 MG TAB PO SCH ×2 (06:32→17:50)
--- NOTE | 2019-03-03 07:50 | NUR ---
ASSESSMENT PT GRIMACED AND WITHDREW TO PAIN; NO EYE OPENING OR SPONT LIMB MOVEMENT. NG PLACED TO LIS (HAD BEEN CLAMPED FOR 0600 MEDS), NO DRAINAGE. LEVOPHED AT 0.6MCG AND WILL BE TITRATED-SEE IV SPREADSHEET. A-LINE RT RADIAL WITH GD WAVE FORM; ZEROED AND FLUSHED. ABD BINDER IN PLACE OVER DRESSING. DRESSING HAS SM AMT DRAINAGE. J-P DRAIN SECURE, FULLY DEFLATED DRAINING BILE. SCROTUM IS EDEMATOUS ARE ALL EXTREMITIES.
--- NOTE | 2019-03-03 08:00 | NUR ---
DR. CROUCH HERE CONCERNED ABOUT INCREASING WBC. WILL CONFER WITH DR. DOWNING ABOUT CT ABD TO R/O ABSCESS
--- NOTE | 2019-03-03 08:20 | NUR ---
DR. DOWNING HERE UPDATED ON LABS, CONDITION. HE SPOKE WITH DR. LAGUNA AND BOTH AGREED TO HAVE CT ON TUESDAY.
--- NOTE | 2019-03-03 08:50 | NUR ---
J-P DRAINAGE SENT TO LAB FOR CULTURE
[2019-03-03] MEDS: DORZOLAMIDE HCL 2% OPTH(EYE) SOL 10ML OP SCH ×2 (09:50→22:27)
[2019-03-03] MEDS: PANTOPRAZOLE 40 MG/10 ML VIAL IV SCH (09:50)
[2019-03-03] MEDS: MIDAZOLAM DRIP 50 mg/50mL 50 ML IV SCH (12:00)
[2019-03-03] MEDS: SODIUM FERR GLUC 62.5MG/5ML 125 MG in SODIUM CHL 0.9% 100 ML IV SCH (12:30)
--- NOTE | 2019-03-03 12:45 | NUR ---
DR. GILLESPIE HERE UPDATED ON CONDITION.
--- NOTE | 2019-03-03 13:09 | NUR ---
LEAK TEST DONE BY DONG JAMISON >200 DR. Olga SANCHEZ. TO CPAP NOW
--- NOTE | 2019-03-03 13:10 | NUR ---
Respiratory note: CPAP TRIAL INITIATED HR 64, RR 20, SPO2 98% BP 142/65.
--- NOTE | 2019-03-03 13:37 | NUR ---
CONSENT SIGNED FOR CENTRAL LINE PLACEMENT. TO START TPN ORDERED. PER PHARMACY CLINIMIX WILL BE SENT FOR TODAY AND TPN WILL BE STARTED TOMORROW
--- NOTE | 2019-03-03 13:57 | NUR ---
HIGH FOWLERS IN BED. AWAKE, RESPONDS TO SISTER SPEAKING MEXICAN. CONT ON CPAP AND SUSHANT WELL
[2019-03-03] MEDS ORDERED: TPN PER PHARMACY 0 ML IV SCH (14:15)
[2019-03-03] MEDS ORDERED: SODIUM CHLORIDE 0.9% 1,000 ML IV SCH ×2 (14:15)
--- NOTE | 2019-03-03 14:30 | NUR ---
DR. TAM AT BEDSIDE FOR INSERTION TRIPLE LUMEN
--- NOTE | 2019-03-03 15:41 | NUR ---
ABG RESULTS REPORTED TO DR. SÁNCHEZ ORDERS REC'D TO EXTUBATE
--- NOTE | 2019-03-03 16:19 | NUR ---
Respiratory note: EXTUBATED PATIENT AND PLACED ON 35% COOL MIST AEROSOL. NO STRIDOR HEARD. NO DISTRESS NOTED. HR 106, RR 16, SPO2 100%, BP 157/101.
[2019-03-03] MEDS: ALBUTEROL SULF 2.5 MG/0.5ML(0.5%) NEB SOLN NEB SCH ×2 (18:18→22:25)
[2019-03-03] MEDS: IPRATROPIUM BROM 0.5 MG/2.5ML INH SOL NEB SCH ×2 (18:18→22:25)
[2019-03-03] MEDS ORDERED: CLINIMIX PER PHARMACY IV NR ×6 (20:00)
--- NOTE | 2019-03-03 20:00 | NUR ---
FENTANYL INFUSION STOPPED: RECEIVED INFUSING AT 50 MCG/HR. STOPPED INFUSION
--- NOTE | 2019-03-03 20:00 | NUR ---
OPENING NOTE: A&OX4. NEPALI SPEAKING BUT DOES UNDERSTAND GREENLANDIC. SINUS TACH, HR 120s. LS CLEAR WITH RHONCHI, AND DIMINISHED TO BASES. EVEN AND UNLABORED BREATHING. FAIR PRODUCTIVE COUGH, SWALLOWING SPUTUM. ABD SOFT. HYPOACTIVE BS. SEE PHYSICAL ASSESSMENT SPREADSHEET FOR LBM. INCISION DRESSING AND JANETTE DRESSING SATURATED. JANETTE WITH DARK BILIOUS DRAINAGE WITH PARTICLES. NGT TO LEFT NARE, LIS, + AIR BOLUS. SCROTUM SWOLLEN. RAI PATENT AND INTACT, DRAINING ERIKA URINE WITH SEDIMENT. SEE SKIN AND WOUND SPREADSHEET FOR ASSESSMENT. PIVs TO LEFT AND RIGHT FOREARMS. CVC TO RIGHT IJ, PATENT AND INTACT WITH BLOOD RETURN. LEFT UPPER ARM MIDLINE, PATENT WITH BLOOD RETURN. A LINE TO RIGHT WRIST, DAMPENED WAVEFORM, TENDER WITH FLUSHING, AND NO BLOOD RETURN. REINFORCED POC. MAINTAINED PATIENT SAFETY: BED LOCKED AND IN THE LOWEST POSITION. FREQUENT VISUAL CHECKS. WILL CONT CARE.
[2019-03-03] MEDS: ACETAMINOPHEN 325 MG TAB PO PRN (21:00)
--- NOTE | 2019-03-03 21:15 | NUR ---
WOUND PHOTO TAKEN: PREVIOUS PIV TO RIGHT AC WAS SECURED WITH EXCESSIVE AMOUNT OF PLASTIC TAPE. UPON ASSESSMENT PATIENT HAD A MIXTURE OF INTACT AND POPPED BLISTERS. WHEN TAPE WAS REMOVED, SKIN WAS PEELED WITH IT. WOUND PHOTO TAKEN AND COVERED WITH GENTLE OPTIFOAM
--- NOTE | 2019-03-03 21:27 | NUR ---
REMOVED PIV X3: TWO FROM LEFT FOREARM, AND ONE FROM RIGHT AC
[2019-03-03] MEDS: MIRTAZAPINE 30 MG TAB PO SCH (22:27)
[2019-03-04] VITALS (46 sets, daily range): BP systolic 77–197; BP diastolic 42–123
[2019-03-04] MEDS: ACCU-CHEK COMFORT CURVE STRIP VI SCH ×6 (00:04→20:26)
[2019-03-04] MEDS: HYDROmorphone HCL 2 MG/ML VL IV PRN ×2 (00:04→15:32)
[2019-03-04] MEDS: PIPERACILLIN-TAZOB 3.375GM 100 ML IV SCH ×4 (00:04→19:15)
--- NOTE | 2019-03-04 01:11 | NUR ---
PARTIAL BED BATH AND FULL LINEN CHANGE COMPLETED
--- NOTE | 2019-03-04 01:12 | NUR ---
INCISIONAL/JANETTE CARE: REMOVED PREVIOUS DRESSING. TRANSVERSE INCISION WELL APPROXIMATED WITH MARIBEL, SLIGHT SURROUNDING ERYTHEMA. CLEANSED WITH CHLORHEXIDINE SWAB. COVERED WITH GAUZE AND SECURED WITH MEDIPORE TAPE. JANETTE NOTED TO BE OOZING AT INSERTION SITE. SATURATED GAUZE AND PAD UNDERNEATH THE PATIENT. CLEANSED WITH CHLORHEXIDINE SWAB. COVERED WITH GAUZE AND SECURED WITH MEDIPORE TAPE
[2019-03-04] MEDS: IPRATROPIUM BROM 0.5 MG/2.5ML INH SOL NEB SCH ×6 (02:56→22:14)
[2019-03-04] MEDS: ALBUTEROL SULF 2.5 MG/0.5ML(0.5%) NEB SOLN NEB SCH ×6 (02:56→22:14)
[2019-03-04] MEDS: ACETAMINOPHEN 325 MG TAB PO PRN (03:24)
--- NOTE | 2019-03-04 03:24 | NUR ---
TEMP 101.2F AXILLARY - COOLING MEASURES APPLIED: REMOVED BLANKETS, ICE PACKS TO BILATERAL AXILLA, TYLENOL PRN GIVEN, AND COOL COMPRESS APPLIED TO FOREHEAD
[2019-03-04] MEDS: InsuLIN REG 1unit/0.01ml Soln (100units/ml) SC SCH ×6 (04:12→20:40)
[2019-03-04 04:34] LABS: Basophils # (auto) 0 uL; Basophils % (auto) 0.2 % (0.0-2.0); Eosinophils # (auto) 0 uL; Eosinophils % (auto) 0.1 % (0.0-7.0); Hematocrit 34.8 % (41.0-53.0); Hemoglobin 11.5 g/dL (13.5-17.5); Lymphocytes # (auto) 1.5 uL; Lymphocytes % (auto) 9.7 % (10.0-50.0); Mean Corpuscular Hemoglobin 28.7 pg (28.0-32.0); Monocytes # (auto) 0.4 uL; Monocytes % (auto) 2.7 % (0.0-12.0); Neutrophils # (auto) 13.6 uL; Neutrophils % (auto) 87.3 % (37.0-80.0); Platelet Count (auto) 329 10^3/uL (140-450); White Blood Cell 15.6 10^3/uL (4.4-10.8)
[2019-03-04 04:48] LABS: Potassium 3.7 mmol/L (3.5-5.1)
[2019-03-04 04:58] LABS: Albumin 1.6 g/dL (3.4-5.0); BUN/Creatinine Ratio 10.6; Bilirubin, Total 0.5 mg/dL (0.2-1.0); Calcium 6.8 mg/dL (8.5-10.1); Magnesium 1.4 mg/dL (1.6-2.6); Pre Albumin 6.8 mg/dL (20.0-40.0); Total Protein 4.5 g/dL (6.4-8.2)
--- NOTE | 2019-03-04 05:00 | NUR ---
TEMP DOWN TO 99.0F ORALLY
--- NOTE | 2019-03-04 05:32 | NUR ---
SWALLOWING: PATIENT REQUESTING ORAL WATER. SAT PATIENT IN HIGH FOWLERS. GAVE 1 SPOONFUL OF THIN WATER, PATIENT WITH IMMEDIATE COUGH. THICKENED WATER, AND GAVE WITH SPOON. PATIENT SWALLOWED WITH NO COUGHING BUT REQUIRED SOME CUING.
[2019-03-04] MEDS: SODIUM CHLORIDE 0.9% 1,000 ML IV SCH (05:33)
[2019-03-04] MEDS: metroNIDAZOLE 500MG/100ML 100 ML IV SCH ×3 (05:34→22:41)
[2019-03-04] MEDS: GABAPENTIN 300 MG CAP PO SCH ×3 (05:34→22:41)
[2019-03-04] MEDS: REPAGLINIDE 0.5 MG TAB PO SCH ×3 (06:30→16:09)
[2019-03-04] MEDS: metFORMIN HYDROCHLORIDE 500 MG TAB PO SCH ×2 (06:30→18:00)
--- NOTE | 2019-03-04 07:10 | NUR ---
REPORT AND CARE ENDORSED TO HARRY BAIRD
--- NOTE | 2019-03-04 07:30 | NUR ---
OPENING SHIFT NOTE Assumed care of patient after report received. Patient awake and alert x3. No distress noted, respirations even and unlabored currently on 2 liters nasal cannula. Patient denies pain or discomfort at this time. Abdominal incision assessed, no redness, drainage or swelling noted on incision site or trina drainage insertion site - tg are intact and incision well approximated. Patient instructed on POC and to call for assist PRN, fall precautions in place, will continue to monitor for changes Q1hr and PRN.
--- NOTE | 2019-03-04 07:50 | NUR ---
HOSPITALIST AT BEDSIDE DR Olman LAGUNA UPDATED ON PATIENT'S STATUS, LABS AND VITAL SIGNS (elevated blood pressure). ORDERS RECEIVED AND WILL BE CARRIED OUT.
--- NOTE | 2019-03-04 08:10 | NUR ---
Family updated on pt status Family of TIMOTHYRYAN updated on patient's status and condition after password verification. All questions and concerns addressed. Patient's sister Alexa verbalized understanding.
--- NOTE | 2019-03-04 08:10 | NUR ---
SURGEON AT BEDSIDE DR DOWNING UPDATED ON PATIENT'S STATUS. BOTH NURSE AND MD ASSESSED INCISION SITE ONCE AGAIN. DR DOWNING AWARE OF TOTAL JANETTE OUTPUT FOR [address] DOWNING ORDERED STRICT NPO AND FLUID RESTRICTION. DR DOWNING DISCUSSED POC WITH PATIENT, PATIENT VERBALIZED UNDERSTANDING.
[2019-03-04] MEDS: PANTOPRAZOLE 40 MG/10 ML VIAL IV SCH (10:00)
[2019-03-04] MEDS: METOPROLOL TARTRATE 1MG/1ML-5ML VIAL IV PRN ×2 (10:14→22:58)
--- NOTE | 2019-03-04 10:47 | NUR ---
CALL RECEIVED FROM PHARMACY/MEDICATION HELD PER PHARMACY, "HOLD GLUCOPHAGE AND PRANDIN TABLET DUE TO NPO STATUS".
[2019-03-04] MEDS ORDERED: POTASSIUM PHOSPHATE 44 MEQ in D5W 5% 250 ML IV ONE (11:00)
[2019-03-04] MEDS: MIDAZOLAM DRIP 50 mg/50mL 50 ML IV SCH (11:32)
--- NOTE | 2019-03-04 12:40 | NUR ---
Nutrition Consult/Follow-up Notes Wt.: 75.0 kg Pt's successfully extubated on 03/03, sleeping with no family by bedside. per records pt s/p lap pal. pt is currently NPO and initiated on PN support from last night with Clinimix @ 42 ml/hr providing 510 kcals and 42.5 gm proteins. pt with inadequate PN support as it meets 21-26% kcals and 41-53% proteins Est. Needs IBW [id number] kcal (25-30 kcal/kgBW), 78-101 gms pro (1.0-1.3gms/kgBW r/t severe hypoalb). Will continue to monitor pertinent labs and reassess nutrient need prn Labs: TG WNL, GLU 190 H, ALB 1.6 L, PREALB 6.8 L, CA 6.8 L. Skin: Lencho scale 13, mod risk, incision at site of sx per shipper receiver. GI: Pt had 1 BM on 03/01 gastric drainage on 50 ml today per shipper receiver. PES: Increased nutrient needs r/t current/chronic medical/nutritional status aeb underwt reporting wt loss, severe hypoalbuminemia and NPO Altered nutrition related lab values r/t current/chronic medical condition aeb hyperglycemia, hyperchloremia, hypokalemia, hypocalcemia, severe hypoalbuminemia and elev. Hba1c level. Will continue to monitor NPO status, PN tolerance, skin status, pertinent labs and weight trend. F/u in 2 to 3 days. Rec.: 1.) Advance oral diet when medically appropriate. 2.) Advance PN support to meet > 75% of needs if pt continues to be NPO 3.) Refer pt to CDE/RD for further nutrition education and weight monitoring upon discharge. 4.) Continue current plan of care.
[2019-03-04] MEDS: SODIUM FERR GLUC 62.5MG/5ML 125 MG in SODIUM CHL 0.9% 100 ML IV SCH (13:47)
[2019-03-04] MEDS: DORZOLAMIDE HCL 2% OPTH(EYE) SOL 10ML OP SCH ×2 (14:44→22:42)
[2019-03-04] MEDS: MAGNESIUM SULFATE 1GM/100ML 100 ML IV SCH ×2 (15:16→16:10)
--- NOTE | 2019-03-04 15:26 | NUR ---
FAMILY AT BEDSIDE PATIENT'S SISTER AT BEDSIDE, UPDATED ON PATIENT'S STATUS. PATIENT CONVERSING APPROPRIATELY.
[2019-03-04] MEDS: fentaNYL Drip 2500mCg/250mlNS 250 ML IV SCH (17:58)
--- NOTE | 2019-03-04 19:35 | NUR ---
INITIAL CONTACT ASSUMED CARE OF PATIENT PATIENT APPEARS TO BE RESTING COMFORTABLY IN SEMI FOWLERS POSITION , AAOX4, NO S/S OF DISTRESS NOTED, PATIENT DENIES PAIN AT THIS TIME. VITAL SIGNS SHOW PATIENT HYPERTENSIVE AT THIS TIME. NOTED PAT ON 1L NASAL CANNULA SATTING AT 97%. TRIPLE LUMEN CENTRAL LINE TO RGT IJ, MIDLINE TO LEFT AC PATENT, INTACT AND ASYMPTOMATIC. NOTED RAI CATHETER IN PLACE AND DRAINING TO GRAVITY. BED IN LOWEST LOCKED POSITION, SIDE RAILS UP X 2, PATIENT IN FULL VIEW OF NURSES STATION. SAFETY MAINTAINED, WILL CONTINUE TO MONITOR
[2019-03-04] MEDS ORDERED: TPN PER PHARMACY IV NR ×10 (20:00)
[2019-03-04] MEDS: MIRTAZAPINE 30 MG TAB PO SCH (22:41)
[2019-03-05] VITALS (52 sets, daily range): BP systolic 129–207; BP diastolic 52–83
[2019-03-05] MEDS: ACCU-CHEK COMFORT CURVE STRIP VI SCH ×6 (00:45→22:31)
[2019-03-05] MEDS: InsuLIN REG 1unit/0.01ml Soln (100units/ml) SC SCH ×6 (00:47→22:35)
[2019-03-05] MEDS: PIPERACILLIN-TAZOB 3.375GM 100 ML IV SCH ×4 (01:40→17:26)
[2019-03-05] MEDS: METOPROLOL TARTRATE 1MG/1ML-5ML VIAL IV PRN ×2 (02:08→05:18)
[2019-03-05 04:07] LABS: Potassium 3.5 mmol/L (3.5-5.1)
[2019-03-05 04:11] LABS: Albumin 1.4 g/dL (3.4-5.0); Calcium 7.4 mg/dL (8.5-10.1)
[2019-03-05 04:16] LABS: Bilirubin, Total 0.2 mg/dL (0.2-1.0); Phosphorus 1.7 mg/dL (2.5-4.90); Total Protein 4.5 g/dL (6.4-8.2)
[2019-03-05] MEDS: GABAPENTIN 300 MG CAP PO SCH ×3 (05:39→22:24)
[2019-03-05] MEDS: metroNIDAZOLE 500MG/100ML 100 ML IV SCH ×3 (05:40→22:24)
[2019-03-05] MEDS ORDERED: hydrALAZINE HCL 20 MG/ML VL IV ONE (06:30)
[2019-03-05] MEDS: metFORMIN HYDROCHLORIDE 500 MG TAB PO SCH (06:31)
[2019-03-05] MEDS: ALBUTEROL SULF 2.5 MG/0.5ML(0.5%) NEB SOLN NEB SCH ×5 (06:45→22:20)
[2019-03-05] MEDS: IPRATROPIUM BROM 0.5 MG/2.5ML INH SOL NEB SCH ×5 (06:45→22:20)
[2019-03-05] MEDS: REPAGLINIDE 0.5 MG TAB PO SCH (07:00)
[2019-03-05] MEDS ORDERED: GASTROGRAFIN 30 ML SOL ONE (07:10)
--- NOTE | 2019-03-05 08:50 | NUR ---
DR. LAGUNA HERE TO SEE PATIENT. SEE MD NOTES AND ORDERS.
[2019-03-05] MEDS ORDERED: DEXTROSE (50%) 50ML SYRG IV PRN (09:00)
[2019-03-05] MEDS ORDERED: POTASSIUM PHOSPHATE 44 MEQ in D5W 5% 250 ML IV ONE (09:15)
[2019-03-05] MEDS: HYDROmorphone HCL 2 MG/ML VL IV PRN ×3 (09:36→20:17)
[2019-03-05] MEDS: PANTOPRAZOLE 40 MG/10 ML VIAL IV SCH (10:00)
[2019-03-05] MEDS: DORZOLAMIDE HCL 2% OPTH(EYE) SOL 10ML OP SCH ×2 (10:00→22:53)
[2019-03-05] MEDS ORDERED: IOHEXOL 300 MG/ML 100ML BOTTLE IJ ONE (10:15)
--- NOTE | 2019-03-05 10:23 | NUR ---
Respiratory note: Scheduled medneb tx not given at this time, pt is off unit at CT. Will return for next tx as ordered.
[2019-03-05] MEDS: MIDAZOLAM DRIP 50 mg/50mL 50 ML IV SCH (11:32)
[2019-03-05] MEDS: SODIUM FERR GLUC 62.5MG/5ML 125 MG in SODIUM CHL 0.9% 100 ML IV SCH (12:06)
[2019-03-05] MEDS: FLUCONAZOLE 200MG/100ML 100 ML IV SCH (12:55)
[2019-03-05] MEDS: METOPROLOL TARTRATE 25 MG TAB PO SCH ×2 (14:08→22:23)
[2019-03-05] MEDS: fentaNYL Drip 2500mCg/250mlNS 250 ML IV SCH (14:09)
[2019-03-05] MEDS: hydrALAZINE HCL 20 MG/ML VL IV PRN (17:26)
[2019-03-05] MEDS ORDERED: TPN PER PHARMACY IV NR ×10 (20:00)
[2019-03-05] MEDS: MIRTAZAPINE 30 MG TAB PO SCH (22:23)
[2019-03-06] VITALS (40 sets, daily range): BP systolic 129–179; BP diastolic 52–79
--- NOTE | 2019-03-06 00:01 | NUR ---
ROUNDED: COVERING ASSIGNED RN FOR LUNCH BREAK. PATIENT RESTING IN BED. EVEN AND UNLABORED BREATHING. VSS AT THIS TIME. WILL ENDORSE CARE BACK TO ASSIGNED RN
[2019-03-06] MEDS: PIPERACILLIN-TAZOB 3.375GM 100 ML IV SCH ×2 (01:19→05:59)
[2019-03-06 03:39] LABS: Basophils # (auto) 0 uL; Basophils % (auto) 0.3 % (0.0-2.0); Eosinophils # (auto) 0.1 uL; Eosinophils % (auto) 0.9 % (0.0-7.0); Hematocrit 29.6 % (41.0-53.0); Hemoglobin 9.9 g/dL (13.5-17.5); Lymphocytes % (auto) 8.9 % (10.0-50.0); Mean Corpuscular Hgb Conc. 33.3 g/dL (32.0-36.0); Mean Corpuscular Volume 87.1 fL (80.0-100.0); Monocytes # (auto) 0.7 uL; Monocytes % (auto) 5.9 % (0.0-12.0); Neutrophils # (auto) 9.7 uL; Nucleated Red Blood Cells % 0.1 %; Platelet Count (auto) 290 10^3/uL (140-450); Red Cell Distribution Width 15.2 % (11.8-14.3); White Blood Cell 11.5 10^3/uL (4.4-10.8)
[2019-03-06 03:53] LABS: Potassium 3.8 mmol/L (3.5-5.1)
[2019-03-06 03:56] LABS: Albumin 1.3 g/dL (3.4-5.0); Calcium 7.3 mg/dL (8.5-10.1)
[2019-03-06 03:58] LABS: Magnesium 1.9 mg/dL (1.6-2.6)
[2019-03-06 04:01] LABS: BUN/Creatinine Ratio 11.3; Bilirubin, Total 0.3 mg/dL (0.2-1.0); Total Protein 4.5 g/dL (6.4-8.2)
[2019-03-06 04:02] LABS: Phosphorus 2.9 mg/dL (2.5-4.90)
[2019-03-06 04:04] LABS: % Iron Saturation 27.3 % (20-55)
[2019-03-06] MEDS: metroNIDAZOLE 500MG/100ML 100 ML IV SCH ×3 (06:00→23:06)
[2019-03-06] MEDS: IPRATROPIUM BROM 0.5 MG/2.5ML INH SOL NEB SCH ×5 (06:00→22:32)
[2019-03-06] MEDS: ALBUTEROL SULF 2.5 MG/0.5ML(0.5%) NEB SOLN NEB SCH ×5 (06:00→22:32)
[2019-03-06] MEDS: GABAPENTIN 300 MG CAP PO SCH ×3 (06:00→23:06)
[2019-03-06] MEDS: ACCU-CHEK COMFORT CURVE STRIP VI SCH ×4 (06:13→22:00)
[2019-03-06] MEDS: hydrALAZINE HCL 20 MG/ML VL IV PRN (08:38)
--- NOTE | 2019-03-06 10:30 | NUR ---
MD RETURNED PAGE: Spoke with Dr. Olga Flores regarding patient status. Informed him that patient has had BM, has hypoactive bowel sounds, and has been tolerating NGT off of suction for 2 hours. States keep NPO except for medications and to clamp the NGT.
[2019-03-06] MEDS: PANTOPRAZOLE 40 MG/10 ML VIAL IV SCH (10:36)
[2019-03-06] MEDS: METOPROLOL TARTRATE 25 MG TAB PO SCH ×2 (10:49→23:07)
[2019-03-06] MEDS: DORZOLAMIDE HCL 2% OPTH(EYE) SOL 10ML OP SCH ×2 (10:53→22:00)
[2019-03-06] MEDS: FLUCONAZOLE 200MG/100ML 100 ML IV SCH ×2 (10:56→12:00)
[2019-03-06] MEDS: InsuLIN REG 1unit/0.01ml Soln (100units/ml) SC SCH ×3 (11:30→22:00)
--- NOTE | 2019-03-06 11:32 | NUR ---
Nutrition Follow-up Notes Wt.: 77.5 kg today. Pt's talking to MD bedside when rounded earlier. P remains NPO with TPN @ 54 ml/hr providing 1330 kcal, 70 gms proteins, 1050 NPCs and 15% Fat. Pt with inadequate PN support d/t mod initiation rate delivery of concentrated formula aeb current PN infusion meets 57% to 68% of est caloric needs and 69% to 90% of est protein needs. Noted pt's to receive tonight another TPN@ 60 ml/hr providing 26541 kcal, 80 gms proteins, 1150 NPCs and 20% Fat. Est. Needs IBW [id number] kcal (25-30 kcal/kgBW), 78-101 gms pro (1.0-1.3gms/kgBW r/t severe hypoalb). Will continue to monitor pertinent labs and reassess nutrient need prn Labs: Gluc 306 H, Ca 7.3 L, Fe 15 L, TIBC 55 L, Ferritin 1024.8 H,ALT 9 L, Tpro 4.5 L, Alb 1.3 L, Prealb 6.8 L, Trig 110 wnl. Skin: Lencho scale 14, mod risk, pt's right medial abdomen incision dry and intact per icu clerk. GI: Pt had 1 BM on 03/01/19, had gastric drainage output of 75 ml this morning per icu clerk. PES: Increased nutrient needs r/t current/chronic medical/nutritional status aeb underwt reporting wt loss, severe hypoalbuminemia and NPO Altered nutrition related lab values r/t current/chronic medical condition aeb hyperglycemia, hyperchloremia, hypokalemia, hypocalcemia, severe hypoalbuminemia and elev. Hba1c level. Will continue to monitor NPO status, PN tolerance, skin status, pertinent labs and weight trend. F/u in 2 to 3 days. Rec.: 1.) If still NPO with PN support, consider gradual increase on calories and protein to meet at least 75% of nutrient needs. 2.) Advance gradually to oral diet when medically appropriate. 3.) Refer pt to CDE/RD for further nutrition education and weight monitoring upon discharge. 4.) Continue current plan of care.
[2019-03-06] MEDS: SODIUM FERR GLUC 62.5MG/5ML 125 MG in SODIUM CHL 0.9% 100 ML IV SCH (12:57)
--- NOTE | 2019-03-06 15:16 | NUR ---
MD PHONE CALL; Notified Dr. Olman Maxwell regarding left upper arm pain, redness and swelling. Orders received.
[2019-03-06] MEDS: cefTRIAXone 1GM/50ML D5W 50 ML IV SCH (16:00)
--- NOTE | 2019-03-06 16:20 | NUR ---
TRANSFER TO TELE: Patient transferred to room 273-A, all belongings with patient at time of transfer. Bed in low position, call light in reach, patient with no needs upon arrival to room. Jing BAIRD aware that patient has been transferred to room .
--- NOTE | 2019-03-06 16:30 | NUR ---
TRANSFER: Patient received via bed from ICU to room 273A. Report received from Ravi, Student Diamond Grader. Assumed care of patient. Instructed patient on use of call light. Bed in lowest position, rails x2 up and call light within reach. NGT clamped to left nare. TPN infusing in Rt IJ TLC. Will continue to monitor.
--- NOTE | 2019-03-06 17:30 | NUR ---
ULTRASOUND: Tech at bedside doing left extremity ultrasound.
--- NOTE | 2019-03-06 18:10 | NUR ---
HOSPITALIST: Notifgarret Campos NP of ultrasound results. Thrombus noted to left superficial basilic and cephalic veins. Patient with midline to left basilic. Order received to discontinue midline.
--- NOTE | 2019-03-06 19:12 | NUR ---
CLOSING SHIFT NOTE: Report given to NOC Jass BAIRD. Endorsed care of patient.
--- NOTE | 2019-03-06 19:30 | NUR ---
open note assumed care of pt. pt awake and alert upon entering room. pt denies any pain. no distress noted. pt has clamped NGT to right nare. peña draining clear yellow. right IJ running tpn. pt bed is locked, low position and 2x rails up. pt updated on plan of care. no additional questions at this time. call light in reach. will round q1hr and as needed.
[2019-03-06] MEDS ORDERED: TPN PER PHARMACY IV NR ×11 (20:00)
[2019-03-06] MEDS: MIRTAZAPINE 30 MG TAB PO SCH (23:06)
[2019-03-06] MEDS: ACETAMINOPHEN 325 MG TAB PO PRN (23:06)
[2019-03-07 05:14] VITALS: BP 131/63
[2019-03-07 06:01] LABS: Basophils # (auto) 0 uL; Basophils % (auto) 0.4 % (0.0-2.0); Eosinophils # (auto) 0.2 uL; Hematocrit 30.4 % (41.0-53.0); Hemoglobin 10.3 g/dL (13.5-17.5); Lymphocytes # (auto) 1.2 uL; Lymphocytes % (auto) 11.7 % (10.0-50.0); Mean Corpuscular Hemoglobin 29.5 pg (28.0-32.0); Mean Corpuscular Hgb Conc. 33.9 g/dL (32.0-36.0); Mean Corpuscular Volume 87.1 fL (80.0-100.0); Monocytes # (auto) 0.7 uL; Monocytes % (auto) 7.1 % (0.0-12.0); Neutrophils # (auto) 8.3 uL; Neutrophils % (auto) 78.8 % (37.0-80.0); Nucleated Red Blood Cells % 0.1 %; Platelet Count (auto) 317 10^3/uL (140-450); Red Blood Cells 3.49 10^6/uL (4.5-5.90); Red Cell Distribution Width 15.4 % (11.8-14.3); White Blood Cell 10.6 10^3/uL (4.4-10.8)
[2019-03-07] MEDS: InsuLIN REG 1unit/0.01ml Soln (100units/ml) SC SCH ×4 (06:24→22:38)
[2019-03-07] MEDS: GABAPENTIN 300 MG CAP PO SCH ×3 (06:24→22:15)
[2019-03-07] MEDS: ACCU-CHEK COMFORT CURVE STRIP VI SCH ×4 (06:24→22:21)
[2019-03-07] MEDS: metroNIDAZOLE 500MG/100ML 100 ML IV SCH ×3 (06:24→22:14)
[2019-03-07 06:30] LABS: Albumin 1.5 g/dL (3.4-5.0); Calcium 7.6 mg/dL (8.5-10.1); Magnesium 1.9 mg/dL (1.6-2.6); Potassium 3.7 mmol/L (3.5-5.1)
[2019-03-07 06:34] LABS: BUN/Creatinine Ratio 14.5; Bilirubin, Total 0.2 mg/dL (0.2-1.0); Phosphorus 2.7 mg/dL (2.5-4.90); Total Protein 4.7 g/dL (6.4-8.2)
[2019-03-07] MEDS: IPRATROPIUM BROM 0.5 MG/2.5ML INH SOL NEB SCH ×5 (06:46→22:43)
[2019-03-07] MEDS: ALBUTEROL SULF 2.5 MG/0.5ML(0.5%) NEB SOLN NEB SCH ×5 (06:46→22:43)
--- NOTE | 2019-03-07 06:46 | NUR ---
RT NOTE: PT REFUSED TX AT THIS TIME. NO SIGNS OF RESPIRATORY DISTRESS NOTED. LUNG SOUNDS CLEAR T/O. ON RA SPO2 93 HR 99 RR 16. PT AWARE THAT WE WILL RETURN FOR NEXT SCHEDULED TX. WILL CONTINUE TO MONITOR.
--- NOTE | 2019-03-07 07:15 | NUR ---
Opening Shift Note Assumed care of patient, awake and alert X4. No S/S of distress/SOB or pain. Bed in lowest position, side rails up x2, wheels locked. Anderson bag secured below the bladder, patent and draining yellow urine. Call light within reach. Instructed on POC and to call for assist PRN, patient verbalized understanding. Will continue to monitor for changes Q1hr and PRN.
[2019-03-07 09:00] VITALS: BP 144/68
[2019-03-07] MEDS: cefTRIAXone 1GM/50ML D5W 50 ML IV SCH (09:37)
--- NOTE | 2019-03-07 10:28 | NUR ---
NGT removal NGT removed per MD/INCLUSION SPECIALIST order following explanation and instruction to patient. Patient verbalized understanding prior to removal. Patient tolerated well.
[2019-03-07] MEDS: PANTOPRAZOLE 40 MG/10 ML VIAL IV SCH (10:30)
--- NOTE | 2019-03-07 10:30 | NUR ---
JANETTE DRAIN EMPTIED JANETTE DRAIN OF 50 ML OF DARK GREEN DRAINAGE. JANETTE DRAIN IS INTACT AND PATENT. WILL CONTINUE TO MONITOR.
[2019-03-07] MEDS: METOPROLOL TARTRATE 25 MG TAB PO SCH ×2 (10:31→22:17)
[2019-03-07] MEDS: FLUCONAZOLE 200MG/100ML 100 ML IV SCH ×2 (11:00→11:50)
[2019-03-07 11:06] VITALS: BP 144/68
[2019-03-07] MEDS: DORZOLAMIDE HCL 2% OPTH(EYE) SOL 10ML OP SCH ×2 (11:49→22:38)
[2019-03-07] MEDS: SODIUM FERR GLUC 62.5MG/5ML 125 MG in SODIUM CHL 0.9% 100 ML IV SCH (12:26)
[2019-03-07 13:00] VITALS: BP 140/68
[2019-03-07 16:47] VITALS: BP 130/66
--- NOTE | 2019-03-07 17:40 | NUR ---
RIGHT CENTRAL LINE ACCIDENTALLY PULLED OUT. THE PATIENT WAS BEING PULLED UP IN BED WHEN THE IV LINE GOT CAUGHT ON THE BED SIDE RAIL AND PULLED OUT OF THE NECK. THERE WAS NOT BLOOD NOTED. THE CATHETER WAS INTACT AND REST OF THE DRESSING WAS REMOVED. PRESSURE APPLIED TO AREA. STILL NO BLOOD NOTED. INSTRUCTED THE FAMILY AND THE PATIENT TO CALL IF THEY NOTICE ANY SWELLING OR BLEEDING TO THE AREA.
--- NOTE | 2019-03-07 18:45 | NUR ---
IV insertion IV access obtained, via clean sterile technique by inserting 22 gauge catheter at right wrist after 1 attempt. IV secured properly. No trauma to site. Patient tolerated well.
--- NOTE | 2019-03-07 18:53 | NUR ---
JANETTE DRAIN 50ML OF DARK GREENISH FLUID EMPTIED FROM JANETTE DRAIN. NO ODOR NOTED. SHIFT TOTAL OF 100ML OUT OF JANETTE DRAIN TODAY.
--- NOTE | 2019-03-07 19:40 | NUR ---
Opening Shift Note Assumed care of patient, awake and alert X4. No S/S of distress/SOB or pain. Bed in lowest position, side rails up x2 and call light is within reach of the patient. No S/S of distress SOB noted. Anderson bag secured below the bladder, patent and draining yellow urine. Dressing is dry and intact, abdominal binder around abdomen and JANETTE drain draining. Instructed on POC and to call for assist PRN, patient verbalized understanding.
[2019-03-07] MEDS ORDERED: TPN PER PHARMACY IV NR ×10 (20:00)
[2019-03-07 22:11] VITALS: BP 122/65
[2019-03-07] MEDS: MIRTAZAPINE 30 MG TAB PO SCH (22:15)
--- NOTE | 2019-03-08 03:00 | NUR ---
Wound pictures taken: Wound pictures taken on right forearm and left upper arm skin tears. Right forearm has Optifoam in place, left upper arm skin tear is open to air. Wound consult in place. No S/S of distress SOB noted in the patient. Breaths are even and unlabbored and call light is within reach of the patient.
[2019-03-08] MEDS: GABAPENTIN 300 MG CAP PO SCH ×3 (05:29→22:28)
[2019-03-08] MEDS: metroNIDAZOLE 500MG/100ML 100 ML IV SCH ×3 (05:29→22:28)
[2019-03-08 05:46] VITALS: BP 141/65
--- NOTE | 2019-03-08 06:04 | NUR ---
JANETTE DRAIN: 100 ML OF DARK GREEN FLUID DRAINED FROM JANETTE DRAIN FROM SHIFT TODAY. PATIENT IS RESTING IN BED WITH NO S/S OF DISTRESS OR PAIN NOTED AT THIS TIME. CALL LIGHT IS WITHIN REACH OF THE PATIENT.
[2019-03-08 06:21] LABS: Basophils # (auto) 0.1 uL; Basophils % (auto) 0.7 % (0.0-2.0); Eosinophils # (auto) 0.2 uL; Eosinophils % (auto) 2.2 % (0.0-7.0); Hematocrit 30.7 % (41.0-53.0); Hemoglobin 10.4 g/dL (13.5-17.5); Lymphocytes # (auto) 1.5 uL; Lymphocytes % (auto) 13.6 % (10.0-50.0); Mean Corpuscular Hemoglobin 29.5 pg (28.0-32.0); Mean Corpuscular Hgb Conc. 33.8 g/dL (32.0-36.0); Mean Corpuscular Volume 87.4 fL (80.0-100.0); Monocytes # (auto) 0.8 uL; Monocytes % (auto) 6.9 % (0.0-12.0); Neutrophils # (auto) 8.4 uL; Neutrophils % (auto) 76.6 % (37.0-80.0); Platelet Count (auto) 392 10^3/uL (140-450); Red Blood Cells 3.51 10^6/uL (4.5-5.90); Red Cell Distribution Width 15.5 % (11.8-14.3); White Blood Cell 10.9 10^3/uL (4.4-10.8)
[2019-03-08 06:27] LABS: Albumin 1.6 g/dL (3.4-5.0); Calcium 7.6 mg/dL (8.5-10.1); Potassium 3.7 mmol/L (3.5-5.1)
[2019-03-08 06:30] LABS: BUN/Creatinine Ratio 13.2; Bilirubin, Total 0.4 mg/dL (0.2-1.0)
[2019-03-08] MEDS: ACCU-CHEK COMFORT CURVE STRIP VI SCH ×4 (06:39→22:32)
[2019-03-08] MEDS: InsuLIN REG 1unit/0.01ml Soln (100units/ml) SC SCH ×4 (06:40→22:41)
[2019-03-08 06:43] LABS: Magnesium 1.8 mg/dL (1.6-2.6); Phosphorus 2.8 mg/dL (2.5-4.90)
--- NOTE | 2019-03-08 07:04 | NUR ---
Closing note: Patient is resting in bed, breaths even and unlabored. No s/s of distress SOB noted. Bed is in lowest locked position with bed rails up times 2 and call light is within reach of the patient. Dressings dry and intact. Will endorse care to day shift nurse.
[2019-03-08] MEDS: IPRATROPIUM BROM 0.5 MG/2.5ML INH SOL NEB SCH ×5 (07:11→22:00)
[2019-03-08] MEDS: ALBUTEROL SULF 2.5 MG/0.5ML(0.5%) NEB SOLN NEB SCH ×5 (07:11→22:00)
--- NOTE | 2019-03-08 07:20 | NUR ---
Opening Shift Note Assumed care of patient, awake and alert x4. No S/S of distress/SOB or pain. Anderson hanging below the bladder, draining yellow urine. JANETTE drain intact, patent, and draining dark green fluid. Bed in lowest position, side rails up x2, bed wheels locked, call light within reach. Instructed on POC and to call for assist PRN, patient verbalized understanding. Will continue to monitor for changes Q1hr and PRN.
--- NOTE | 2019-03-08 07:30 | NUR ---
SCD MACHINE PATIENT REFUSED TO HAVE THE SCD MACHINE ON. PATIENT EDUCATED ABOUT RISKS OF NOT HAVING THE SCD MACHINE ON. PATIENT VERBALIZED UNDERSTANDING. WILL CONTINUE TO MONITOR Q1 HOUR OR PRN.
[2019-03-08 09:00] VITALS: BP 129/58
[2019-03-08] MEDS: DORZOLAMIDE HCL 2% OPTH(EYE) SOL 10ML OP SCH ×2 (09:08→22:27)
[2019-03-08] MEDS: cefTRIAXone 1GM/50ML D5W 50 ML IV SCH (09:08)
[2019-03-08] MEDS: METOPROLOL TARTRATE 25 MG TAB PO SCH ×2 (09:08→22:29)
[2019-03-08] MEDS: PANTOPRAZOLE 40 MG/10 ML VIAL IV SCH (09:09)
--- NOTE | 2019-03-08 10:00 | NUR ---
CHICA SPOKE WITH GINNY VIA TELEPHONE ABOUT MIDLINE PLACEMENT.
--- NOTE | 2019-03-08 10:30 | NUR ---
JANETTE DRAIN EMPTIED 75 ML OF DARK GREEN ODORLESS FLUID FROM JANETTE DRAIN. JANETTE DRAIN INTACT AND PATENT AT THIS TIME. WILL CONTINUE TO MONITOR
--- NOTE | 2019-03-08 11:24 | NUR ---
Midline Placement: Patient educated on need for midline placement. All risks and benefits explained and all questions and concerns addresses prior to procedure. 18g/10cm midline inserted via right basilic vein using Ultrasound. Sterile technique utilized. Blood return obtained from the lumen and flushed easily with NS using proper technique. Midline secured with saline lock; biodisc and occlusive dressing applied. Primary RN notified. Midline lot # [id number]. x1 attempt
--- NOTE | 2019-03-08 11:45 | NUR ---
WOUND CARE NOTE: IN TO SEE PATIENT AT THIS TIME PER WOUND CARE CONSULT REQUEST. PATIENT WAS NOTED TO HAVE SKIN TEARS TO BILATERAL ARMS, WOUND PHOTOS TAKEN BY BEDSIDE NURSE FOR REFERENCE, WOUND CONSULT ORDERED. PATIENT HAS CURRENT STEVEN SCORE OF 13. HE NEEDS ASSISTANCE WITH HIS TURNING/REPOSITIONING. OPTIFOAM GENTLE SACRAL DRESSING APPLIED PREVENTATIVE. PATIENT HAS SKIN TEARS TO BILATERAL ARMS. LEFT UPPER ARM IS COVERED WITH LIGHT BROWN SCAB. NO OPEN OR DRAINING AREAS NOTED. LEFT OPEN TO AIR. RIGHT FOREARM HAS 3 SKIN TEARS NOTED. WOUNDS MEASURE 1.5 X 3.5 ; 6 X 3.5; AND 1 X 3 CM. ALL WOUNDS PARTIAL THICKNESS. LIGHT SEROUS DRAINAGE NOTED. CLEANSED WITH NS, PATTED DRY WITH STERILE GAUZE.APPLIED THERAHONEY. COVERED WITH OPTIFOAM GENTLE DRESSINGS. NEW WOUND PHOTO TAKEN WITH MEASUREMENTS OF RIGHT FOREARM WOUNDS FOR REFERENCE. RECOMMEND: FREQUENT TURN SCHEDULE Q 2 HOURS, PRN CONDITION PERMITS, WITH PRESSURE REDISTRIBUTION USING PILLOWS/WEDGES, BID/PRN APPLICATION WITH MOISTURE BARRIER CREAM, OPTIFOAM GENTLE SACRAL DRESSING PREVENTATIVE, EOD/PRN DRESSING CHANGE WITH THERAHONEY, OPTIFOAM GENTLE DRESSINGS, DIETARY CONSULT, CONTINUED MONITORING BY WOUND CARE TEAM. Addendum: 03/08/19 at 1804 by Cherrie Durand RN Amended: Links added.
[2019-03-08] MEDS: FLUCONAZOLE 200MG/100ML 100 ML IV SCH ×2 (11:59→13:16)
--- NOTE | 2019-03-08 12:49 | NUR ---
Nutrition Follow-up Notes Wt.: 79.9 kg Pt's sleeping with no family by bedside. per records pt s/p open pal 03/01, no distress noted per nursing. pt is now off PN support advanced to soft diet with adequate PO of avg 75% x 3 per RN doc Est. Needs IBW [id number] kcal (25-30 kcal/kgBW), 78-101 gms pro (1.0-1.3gms/kgBW r/t severe hypoalb). Will continue to monitor pertinent labs and reassess nutrient need prn Labs: GLU 140 H, ALB 1.6 L, CA 7.6 L. Skin: Lencho scale 13, mod risk, pt's right medial abdomen incision dry and intact per chief service dispatcher. GI: Pt had 2 BM yesterday per chief service dispatcher. PES: Increased nutrient needs r/t current/chronic medical/nutritional status aeb underwt reporting wt loss, severe hypoalbuminemia and NPO Altered nutrition related lab values r/t current/chronic medical condition aeb hyperglycemia, hyperchloremia, hypokalemia, hypocalcemia, severe hypoalbuminemia and elev. Hba1c level. Will continue to monitor PO intake, skin status, pertinent labs and weight trend. F/u in 3-5 days. Rec.: 1.) Consider prostat 1 packet bid. 2) consider CCHO 60 gm along with current diet as pt with hx of DM per records. 3) Refer pt to CDE/RD for further nutrition education and weight monitoring upon discharge. 3.) Continue current plan of care.
[2019-03-08 13:00] VITALS: BP 127/62
--- NOTE | 2019-03-08 13:20 | NUR ---
IV removal IV DC'd with clean sterile technique, catheter fully intact. Pressure dressing applied to site. Patient tolerated well.
--- NOTE | 2019-03-08 14:38 | NUR ---
IM : pt refused to sign IM, copy placed in chart, no family at bedside
[2019-03-08] MEDS ORDERED: IRON SUCROSE COMPLEX 200 MG in SODIUM CHL 0.9% 100 ML IV ONE (15:00)
[2019-03-08 16:32] VITALS: BP 140/66
[2019-03-08] MEDS: Pro-Stat SF 30ml Vanilla PO SCH (18:00)
--- NOTE | 2019-03-08 19:50 | NUR ---
AT BEDSIDE TO ASSESS INCISION SITE/DRAIN
--- NOTE | 2019-03-08 19:52 | NUR ---
JANETTE DRAIN OUTPUT EMPTIED 75ML OF GREEN LIQUID DRAINAGE. AT BEDSIDE. PER EMPTY JANETTE DRAIN EVERY 4 HOURS/24HOUR AND DOCUMENT DRAINAGE. NEW ORDERS RECEIVED TO DC PATIENTS RAI CATHETER.
--- NOTE | 2019-03-08 21:30 | NUR ---
TOTAL LINEN CHANGE/PARTIAL BED BATH PROVIDED. PATIENT INCONTINENT OF BM. MOD AMOUNT OF SEMILIQUID STOOL NOTED. PATIENT CLEANED AND REPOSITIONED FOR COMFORT. OPTIFOAM TO SACRUM C/D/I. PILLOWS PLACED FOR PATIENT COMFORT, TURNED TO LEFT SIDE. SCD'S IN PLACE BILATERALLY. FALL PRECAUTIONS IN PLACE.
[2019-03-08 22:20] VITALS: BP 137/69
[2019-03-08] MEDS: MIRTAZAPINE 30 MG TAB PO SCH (22:28)
--- NOTE | 2019-03-09 | NUR ---
JANETTE DRAIN OUTPUT EMPTIED 50ML OF GREEN/BROWN LIQUID DRAINAGE. RETURNED TO BULB SUCTION.
--- NOTE | 2019-03-09 04:00 | NUR ---
Peña catheter dc'd Order to discontinue peña catheter. Peña dc'd with clean technique following deflation of balloon. Patient tolerated well with no complaints of pain. Continue care.
--- NOTE | 2019-03-09 04:30 | NUR ---
JANETTE DRAIN OUTPUT EMPTIED 20ML OF GREEN/BROWN LIQUID DRAINAGE. RETURNED TO BULB SUCTION.
[2019-03-09 05:46] VITALS: BP 155/73
[2019-03-09] MEDS: ALBUTEROL SULF 2.5 MG/0.5ML(0.5%) NEB SOLN NEB SCH ×5 (06:07→22:00)
[2019-03-09] MEDS: IPRATROPIUM BROM 0.5 MG/2.5ML INH SOL NEB SCH ×5 (06:08→22:00)
[2019-03-09] MEDS: metroNIDAZOLE 500MG/100ML 100 ML IV SCH (06:16)
[2019-03-09] MEDS: GABAPENTIN 300 MG CAP PO SCH ×3 (06:16→20:51)
[2019-03-09] MEDS: ACCU-CHEK COMFORT CURVE STRIP VI SCH ×4 (06:16→20:54)
[2019-03-09] MEDS: InsuLIN REG 1unit/0.01ml Soln (100units/ml) SC SCH ×4 (06:27→21:12)
--- NOTE | 2019-03-09 06:49 | NUR ---
JANETTE DRAIN OUTPUT EMPTIED 25ML OF GREEN/BROWN LIQUID DRAINAGE. RETURNED TO BULB SUCTION. TOTAL OUTPUT FOR [id number]
[2019-03-09] MEDS: Pro-Stat SF 30ml Vanilla PO SCH ×2 (08:05→19:45)
[2019-03-09] MEDS: cefTRIAXone 1GM/50ML D5W 50 ML IV SCH (09:11)
[2019-03-09] MEDS: METOPROLOL TARTRATE 25 MG TAB PO SCH ×2 (10:16→20:53)
[2019-03-09] MEDS: DORZOLAMIDE HCL 2% OPTH(EYE) SOL 10ML OP SCH ×2 (10:16→20:51)
[2019-03-09] MEDS: FLUCONAZOLE 200MG/100ML 100 ML IV SCH ×2 (10:16→11:44)
--- NOTE | 2019-03-09 10:54 | NUR ---
JANETTE OUTPUT 25ML OF BROWN/GREEN DRAINAGE
[2019-03-09] MEDS: ACETAMINOPHEN 325 MG TAB PO PRN (11:54)
[2019-03-09 13:00] VITALS: BP 140/69
[2019-03-09] MEDS: IRON SUCROSE COMPLEX 200 MG in SODIUM CHL 0.9% 100 ML IV SCH (15:05)
[2019-03-09] MEDS: metroNIDAZOLE 500 MG TAB PO SCH ×2 (15:06→20:53)
[2019-03-09 16:42] VITALS: BP 134/69
--- NOTE | 2019-03-09 19:30 | NUR ---
OPENING NOTE PATIENT IS AWAKE AND ALERT X4, RECEIVING BREATHING TREATMENT AT THIS TIME. PATIENT HAS JANETTE DRAIN IN PLACE TO BULB SUCTION WITH MIN GREEN/BROWN DRAINAGE NOTED. ABDOMINAL BINDER IN PLACE, PT S/P OPEN CALIN. NO S/S OF DISTRESS NOTED,PATIENT DENIES PAIN. PATIENT WITH SCD'S BILATERALLY.
[2019-03-09] MEDS: MIRTAZAPINE 30 MG TAB PO SCH (20:52)
[2019-03-09] MEDS: DOCUSATE SOD 100 MG CAP PO SCH (20:52)
--- NOTE | 2019-03-09 21:25 | NUR ---
ENDORSED CARE TO ALYSSA BAIRD. PATIENT IS RESTING IN BED WITH NO S/S OF DISTRESS NOTED.
--- NOTE | 2019-03-09 21:30 | NUR ---
REPORT RECEIVED FROM CLEO BAIRD. PT RESTING IN BED, NO S/S DISTRESS.
[2019-03-09 21:54] LABS: Basophils # (auto) 0.1 uL; Basophils % (auto) 0.8 % (0.0-2.0); Eosinophils # (auto) 0.3 uL; Eosinophils % (auto) 2.6 % (0.0-7.0); Hematocrit 31.1 % (41.0-53.0); Hemoglobin 10.3 g/dL (13.5-17.5); Lymphocytes # (auto) 1.2 uL; Mean Corpuscular Hemoglobin 29.8 pg (28.0-32.0); Mean Corpuscular Hgb Conc. 33.2 g/dL (32.0-36.0); Mean Corpuscular Volume 89.5 fL (80.0-100.0); Monocytes # (auto) 0.5 uL; Monocytes % (auto) 4.8 % (0.0-12.0); Neutrophils # (auto) 8.5 uL; Neutrophils % (auto) 80.8 % (37.0-80.0); Platelet Count (auto) 410 10^3/uL (140-450); Red Blood Cells 3.47 10^6/uL (4.5-5.90); Red Cell Distribution Width 15.8 % (11.8-14.3); White Blood Cell 10.5 10^3/uL (4.4-10.8)
[2019-03-09 22:00] VITALS: BP 132/70
--- NOTE | 2019-03-09 22:07 | NUR ---
PT IS SLEEPING, NO SOB NOTED. [place] TX NOT INDICATED AT THIS TIME
[2019-03-09 22:10] LABS: Albumin 1.8 g/dL (3.4-5.0); Calcium 7.7 mg/dL (8.5-10.1); Potassium 3.5 mmol/L (3.5-5.1)
[2019-03-09 22:13] LABS: BUN/Creatinine Ratio 10.9; Bilirubin, Total 0.3 mg/dL (0.2-1.0); Total Protein 5.2 g/dL (6.4-8.2)
--- NOTE | 2019-03-10 02:06 | NUR ---
PT IS SLEEPING, NO SOB NOTED
--- NOTE | 2019-03-10 02:30 | NUR ---
PT SOILED IN URINE. FULL LINEN CHANGE. SACRAL DRESSING CHANGED. NEW ABDOMINAL BINDER APPLIED.
--- NOTE | 2019-03-10 03:00 | NUR ---
JANETTE DRAIN OUTPUT EMPTIED 70ML DARK GREEN FLUID.
[2019-03-10 05:02] VITALS: BP 149/75
[2019-03-10 05:50] LABS: Basophils # (auto) 0.1 uL; Eosinophils # (auto) 0.3 uL; Eosinophils % (auto) 2.3 % (0.0-7.0); Hematocrit 36.2 % (41.0-53.0); Hemoglobin 11.8 g/dL (13.5-17.5); Lymphocytes % (auto) 7.8 % (10.0-50.0); Mean Corpuscular Hemoglobin 29.4 pg (28.0-32.0); Mean Corpuscular Hgb Conc. 32.5 g/dL (32.0-36.0); Mean Corpuscular Volume 90.4 fL (80.0-100.0); Monocytes # (auto) 0.6 uL; Monocytes % (auto) 4.7 % (0.0-12.0); Neutrophils # (auto) 10.4 uL; Neutrophils % (auto) 84.2 % (37.0-80.0); Platelet Count (auto) 401 10^3/uL (140-450); Red Cell Distribution Width 16.4 % (11.8-14.3); White Blood Cell 12.3 10^3/uL (4.4-10.8)
[2019-03-10] MEDS: ALBUTEROL SULF 2.5 MG/0.5ML(0.5%) NEB SOLN NEB SCH ×5 (05:57→22:21)
[2019-03-10] MEDS: IPRATROPIUM BROM 0.5 MG/2.5ML INH SOL NEB SCH ×5 (05:57→22:21)
[2019-03-10 06:06] LABS: BUN/Creatinine Ratio 9.4; Calcium 7.8 mg/dL (8.5-10.1); Potassium 3.7 mmol/L (3.5-5.1)
[2019-03-10] MEDS: GABAPENTIN 300 MG CAP PO SCH ×3 (06:36→21:29)
[2019-03-10] MEDS: ACCU-CHEK COMFORT CURVE STRIP VI SCH ×4 (06:36→21:41)
[2019-03-10] MEDS: metroNIDAZOLE 500 MG TAB PO SCH ×3 (06:36→21:30)
[2019-03-10] MEDS: InsuLIN REG 1unit/0.01ml Soln (100units/ml) SC SCH ×4 (06:41→22:00)
[2019-03-10] MEDS: Pro-Stat SF 30ml Vanilla PO SCH ×2 (08:00→18:08)
[2019-03-10 08:05] VITALS: BP 130/70
[2019-03-10] MEDS: cefTRIAXone 1GM/50ML D5W 50 ML IV SCH (09:13)
[2019-03-10] MEDS: METOPROLOL TARTRATE 25 MG TAB PO SCH ×2 (10:13→21:31)
[2019-03-10] MEDS: PANTOPRAZOLE 40 MG TAB PO SCH (10:13)
[2019-03-10] MEDS: DORZOLAMIDE HCL 2% OPTH(EYE) SOL 10ML OP SCH ×2 (10:14→21:31)
[2019-03-10] MEDS: FLUCONAZOLE 100 MG TAB PO SCH (10:14)
--- NOTE | 2019-03-10 10:19 | NUR ---
PT Patient eating breakfast and on antibiotics, RN requested to comeback later. Addendum: 03/10/19 at 1020 by MARYELLEN OREILLY PTT Amended: Links added.
[2019-03-10] MEDS: HYDROcodone-ACET 5/325MG TAB PO PRN ×3 (11:00→21:30)
--- NOTE | 2019-03-10 11:10 | NUR ---
PT 2nd AM visit, patient refused to be OOB and stated he wanted to rest and sleep, did not get enough sleep last night. Addendum: 03/10/19 at 1111 by MARYELLEN OREILLY PTT Amended: Links added.
[2019-03-10 11:53] VITALS: BP 111/59
[2019-03-10] MEDS: IRON SUCROSE COMPLEX 200 MG in SODIUM CHL 0.9% 100 ML IV SCH (15:00)
[2019-03-10 16:46] VITALS: BP 126/63
--- NOTE | 2019-03-10 18:00 | NUR ---
Pt alert and oriented, showing no change from initial assessment. Abd surgical site intact, with no redness or swelling. JANETTE intact, draining small amt serous fluid. Abd binder maintained. Sutherland given, times 2, for c/o pain to blistered areas on both arms. No other c/o pain or discomfort.
--- NOTE | 2019-03-10 19:43 | NUR ---
received report from day rn poc reviewed
--- NOTE | 2019-03-10 20:30 | NUR ---
pt observed resting with hob up resp even and unlabored, c/o gen discomfort 02/21 will medicate as ordered, trina output 30 ml green secretion, hypo bowel sounds, call light within all questions and concerns addressed
[2019-03-10] MEDS: MIRTAZAPINE 30 MG TAB PO SCH (21:29)
[2019-03-10] MEDS: DOCUSATE SOD 100 MG CAP PO SCH (21:30)
[2019-03-10 22:00] VITALS: BP 149/75
[2019-03-11] MEDS: hydrALAZINE HCL 20 MG/ML VL IV PRN (00:22)
[2019-03-11 04:59] VITALS: BP 139/83
--- NOTE | 2019-03-11 04:59 | NUR ---
resting comfortable with hob up resp even and unlabored, call light within reach
[2019-03-11] MEDS: GABAPENTIN 300 MG CAP PO SCH ×3 (05:54→22:09)
[2019-03-11] MEDS: metroNIDAZOLE 500 MG TAB PO SCH ×3 (05:55→22:09)
[2019-03-11] MEDS: ACCU-CHEK COMFORT CURVE STRIP VI SCH ×4 (05:59→22:19)
[2019-03-11] MEDS: InsuLIN REG 1unit/0.01ml Soln (100units/ml) SC SCH ×4 (06:00→22:19)
[2019-03-11] MEDS: ALBUTEROL SULF 2.5 MG/0.5ML(0.5%) NEB SOLN NEB SCH ×4 (06:16→19:34)
[2019-03-11] MEDS: IPRATROPIUM BROM 0.5 MG/2.5ML INH SOL NEB SCH ×4 (06:16→19:34)
--- NOTE | 2019-03-11 06:55 | NUR ---
am bed bath given, turned and repositioned with hob up, denies pain trina 100 ml out ..total in 12 hours 150 ml green liquid will continue to monitor and report off to am nurse
[2019-03-11 08:09] VITALS: BP 120/55
[2019-03-11] MEDS: Pro-Stat SF 30ml Vanilla PO SCH ×2 (08:18→18:05)
[2019-03-11] MEDS: HYDROcodone-ACET 5/325MG TAB PO PRN ×3 (08:18→18:13)
[2019-03-11] MEDS: cefTRIAXone 1GM/50ML D5W 50 ML IV SCH (08:18)
[2019-03-11] MEDS: FLUCONAZOLE 100 MG TAB PO SCH (09:40)
[2019-03-11] MEDS: PANTOPRAZOLE 40 MG TAB PO SCH (09:40)
[2019-03-11] MEDS: DORZOLAMIDE HCL 2% OPTH(EYE) SOL 10ML OP SCH ×2 (10:00→22:13)
[2019-03-11] MEDS: METOPROLOL TARTRATE 25 MG TAB PO SCH ×2 (10:06→22:13)
[2019-03-11] MEDS ORDERED: LACTULOSE 20Gm/30ML SOLN PO ONE (12:00)
[2019-03-11 12:14] VITALS: BP 123/56
--- NOTE | 2019-03-11 13:23 | NUR ---
Nutrition Follow-up Notes Wt.: 74.4 kg as of yesterday. Noted 5.5 kg weight loss in last 3 days likely d/t ? fluid loss aeb negative I & Os for past few days. Pt's asleep, no immediate family member at bedside during rounds this morning. Pt's no signs of distress noted earlier, currently on Soft Consistent Std. Carb: 60 gms/meal diet with Prostat 1 pkt BID, has fair PO intake aeb 65% ave. consumed meals (x6) in last 2.5 days. Est. Needs IBW [id number] kcal (25-30 kcal/kgBW), 78-101 gms pro (1.0-1.3gms/kgBW r/t severe hypoalb). Will continue to monitor pertinent labs and reassess nutrient need prn Labs: POC Gluc 189 H; 02/2719 Gluc 132 H, Cl 111 H, BUN 6 L, Cr 0.64 L, Ca 7.8 L, Tpro 5.2 L, Alb 1.8 L. Skin: Lencho scale 18, mod risk, pt's right forearm abrasion, right medial abdomen incision dry and intact per patrol agent. GI: Pt had 2x BM 03/08/19 per patrol agent. PES: Increased nutrient needs r/t current/chronic medical/nutritional status aeb underwt reporting wt loss, severe hypoalbuminemia and NPO Altered nutrition related lab values r/t current/chronic medical condition aeb hyperglycemia, hyperchloremia, hypokalemia, hypocalcemia, severe hypoalbuminemia and elev. Hba1c level. Will continue to monitor PO intake, skin status, pertinent labs and weight trend. F/u in 3-5 days. Rec.: 1.) Consider Glucerna Shakes 1 carton BID. 2.) Continue close supervision and feeding assistance prn during meals. 3.) Refer pt to CDE/RD for further nutrition education and weight monitoring upon discharge. 3.) Continue current plan of care.
[2019-03-11] MEDS: IRON SUCROSE COMPLEX 200 MG in SODIUM CHL 0.9% 100 ML IV SCH (14:32)
[2019-03-11 16:15] VITALS: BP 100/41
[2019-03-11] MEDS: Glucerna Carbsteady SHAKE Chocolate 8oz PO SCH (18:05)
--- NOTE | 2019-03-11 19:30 | NUR ---
received pt from day rn poc reviewed
[2019-03-11 21:59] VITALS: BP 130/63
[2019-03-11] MEDS: MIRTAZAPINE 30 MG TAB PO SCH (22:08)
[2019-03-11] MEDS: DOCUSATE SOD 100 MG CAP PO SCH (22:10)
--- NOTE | 2019-03-11 22:44 | NUR ---
repositioned with hob up resp even and unlabored, denies pain, bed alarm intact call light within reach, trina output 100 ml brown secretion
[2019-03-12 04:51] VITALS: BP 128/79
[2019-03-12] MEDS: ACCU-CHEK COMFORT CURVE STRIP VI SCH ×4 (05:09→22:06)
[2019-03-12] MEDS: metroNIDAZOLE 500 MG TAB PO SCH ×3 (05:09→22:19)
[2019-03-12] MEDS: GABAPENTIN 300 MG CAP PO SCH ×3 (05:09→22:18)
[2019-03-12] MEDS: IPRATROPIUM BROM 0.5 MG/2.5ML INH SOL NEB SCH ×5 (06:07→20:20)
[2019-03-12] MEDS: ALBUTEROL SULF 2.5 MG/0.5ML(0.5%) NEB SOLN NEB SCH ×5 (06:07→20:20)
[2019-03-12] MEDS: InsuLIN REG 1unit/0.01ml Soln (100units/ml) SC SCH ×4 (06:48→22:27)
--- NOTE | 2019-03-12 06:59 | NUR ---
report given to am nurse poc reviewed
--- NOTE | 2019-03-12 07:05 | NUR ---
trina output 105ml total for shift 230 ml green secretion
[2019-03-12] MEDS: Pro-Stat SF 30ml Vanilla PO SCH ×2 (08:00→17:58)
[2019-03-12 09:00] VITALS: BP 133/62
--- NOTE | 2019-03-12 09:00 | NUR ---
Olga Matias at bedside. ordered to drain the JANETTE Bulb every two hours and document the output; follow up with physical therapy.
--- NOTE | 2019-03-12 09:02 | NUR ---
About 80 ml of dark, greenish fluid emptied from the JANETTE Bulb.
[2019-03-12] MEDS: DORZOLAMIDE HCL 2% OPTH(EYE) SOL 10ML OP SCH ×2 (10:00→22:21)
--- NOTE | 2019-03-12 10:20 | NUR ---
Patient's sister Noreen at bedside.
[2019-03-12] MEDS: cefTRIAXone 1GM/50ML D5W 50 ML IV SCH (10:21)
[2019-03-12] MEDS: Glucerna Carbsteady SHAKE Chocolate 8oz PO SCH ×2 (10:21→17:57)
[2019-03-12] MEDS: FLUCONAZOLE 100 MG TAB PO SCH (10:22)
[2019-03-12] MEDS: LACTULOSE 20Gm/30ML SOLN PO SCH (10:22)
[2019-03-12] MEDS: PANTOPRAZOLE 40 MG TAB PO SCH (10:22)
[2019-03-12] MEDS: METOPROLOL TARTRATE 25 MG TAB PO SCH ×2 (10:23→22:20)
--- NOTE | 2019-03-12 10:40 | NUR ---
Olman Darnell at bedside, made aware Olga Matias came over to see the patient this morning and ordered to monitor the JANETTE Bulb drain every two hours, document the output. MD called Olga Matias Patient for SNF placement when discharge possibly tomorrow as per Dr. Maxwell.
[2019-03-12 13:00] VITALS: BP 99/54
--- NOTE | 2019-03-12 15:18 | NUR ---
About 100 ml of dark, greenish fluid drained from the JANETTE Bulb.
--- NOTE | 2019-03-12 16:32 | NUR ---
re-assessment Per 2 ss consults SNF for rehab. Per patient and his sister Alexa they are requesting [facility]. MD order has been sent to [facility]. Waiting for reply back now. Addendum: 03/12/19 at 1633 by Irene Sheehan Amended: Links added.
[2019-03-12] MEDS: IRON SUCROSE COMPLEX 200 MG in SODIUM CHL 0.9% 100 ML IV SCH (16:37)
[2019-03-12 17:00] VITALS: BP 115/55
--- NOTE | 2019-03-12 18:36 | NUR ---
About 25 ml of dark, greenish fluid emptied from the JANETTE Bulb.
[2019-03-12 22:00] VITALS: BP 130/55
[2019-03-12] MEDS: MIRTAZAPINE 30 MG TAB PO SCH (22:20)
[2019-03-12] MEDS: DOCUSATE SOD 100 MG CAP PO SCH (22:20)
[2019-03-13] MEDS: ALBUTEROL SULF 2.5 MG/0.5ML(0.5%) NEB SOLN NEB SCH ×6 (00:10→22:30)
[2019-03-13] MEDS: IPRATROPIUM BROM 0.5 MG/2.5ML INH SOL NEB SCH ×6 (00:10→22:30)
[2019-03-13 05:18] VITALS: BP 131/71
[2019-03-13] MEDS: metroNIDAZOLE 500 MG TAB PO SCH ×3 (06:05→22:00)
[2019-03-13] MEDS: ACCU-CHEK COMFORT CURVE STRIP VI SCH ×4 (06:05→22:00)
[2019-03-13] MEDS: GABAPENTIN 300 MG CAP PO SCH ×3 (06:05→23:25)
[2019-03-13] MEDS: InsuLIN REG 1unit/0.01ml Soln (100units/ml) SC SCH ×4 (06:09→22:00)
[2019-03-13] MEDS: Glucerna Carbsteady SHAKE Chocolate 8oz PO SCH ×2 (08:00→18:44)
[2019-03-13] MEDS: Pro-Stat SF 30ml Vanilla PO SCH ×2 (08:00→18:44)
--- NOTE | 2019-03-13 08:00 | NUR ---
JANETTE Drainage 50ml dark green fluid emptied out of JANETTE drain. No distress or sob noted. Dressing to abd c/d/i. Will cont to monitor
[2019-03-13 08:34] VITALS: BP 125/59
[2019-03-13] MEDS: LACTULOSE 20Gm/30ML SOLN PO SCH (10:00)
--- NOTE | 2019-03-13 10:00 | NUR ---
JANETTE DRAIN OUTPUT EMPTIED 30 ML DARK GREEN FLUID
[2019-03-13] MEDS: cefTRIAXone 1GM/50ML D5W 50 ML IV SCH (10:02)
[2019-03-13] MEDS: DORZOLAMIDE HCL 2% OPTH(EYE) SOL 10ML OP SCH ×2 (10:03→22:00)
[2019-03-13] MEDS: FLUCONAZOLE 100 MG TAB PO SCH (10:03)
[2019-03-13] MEDS: PANTOPRAZOLE 40 MG TAB PO SCH (10:03)
[2019-03-13] MEDS: METOPROLOL TARTRATE 25 MG TAB PO SCH ×2 (10:03→23:24)
--- NOTE | 2019-03-13 10:43 | NUR ---
Hospitalist at bedside MD Maxwell at bedside, aware of patient's status. Per MD Maxwell awaiting surgical clearance from Dr Flores in order to d/c to [facility] at this time. Cont care
--- NOTE | 2019-03-13 12:00 | NUR ---
JANETTE DRAIN EMPTIED 30 ML DARK GREEN FLUID OUT OF JANETTE DRAIN
[2019-03-13 12:34] VITALS: BP 88/47
--- NOTE | 2019-03-13 12:50 | NUR ---
Surgeon at bedside MD Flores at bedside, aware of patient's status including JANETTE drainage and amount is 110ml total for shift up to this time. MD Flores spoke to patient and after pt's consent, sister Noreen at bedside and discussed POC and imaging results. New orders received for CBC and CMP for tomorrow morning, cont JANETTE drain, and cont to monitor and he will see patient tomorrow and review labs. Cont care
[2019-03-13 14:00] VITALS: BP 114/60
--- NOTE | 2019-03-13 15:12 | NUR ---
re-assessment Per Robert at [facility] patient has been accepted to room 207 bed 1 at [facility] and Dr Lou is the accepting MD. Waiting on discharge now. Addendum: 03/13/19 at 1513 by Irene HOWE Amended: Links added.
[2019-03-13] MEDS: IRON SUCROSE COMPLEX 200 MG in SODIUM CHL 0.9% 100 ML IV SCH (15:40)
[2019-03-13 16:45] VITALS: BP 118/60
--- NOTE | 2019-03-13 18:00 | NUR ---
JANETTE DRAINAGE TOTAL DRAINAGE FOR THE SHIFT IS 160ML DARK GREEN FLUID.
[2019-03-13 21:37] VITALS: BP 121/62
[2019-03-13] MEDS: DOCUSATE SOD 100 MG CAP PO SCH (22:00)
[2019-03-13] MEDS: MIRTAZAPINE 30 MG TAB PO SCH (23:24)
[2019-03-14 05:26] VITALS: BP 144/75
[2019-03-14] MEDS: ALBUTEROL SULF 2.5 MG/0.5ML(0.5%) NEB SOLN NEB SCH ×5 (05:57→22:44)
[2019-03-14] MEDS: IPRATROPIUM BROM 0.5 MG/2.5ML INH SOL NEB SCH ×5 (05:57→22:44)
[2019-03-14] MEDS: ACCU-CHEK COMFORT CURVE STRIP VI SCH ×4 (06:19→21:29)
[2019-03-14] MEDS: InsuLIN REG 1unit/0.01ml Soln (100units/ml) SC SCH ×4 (06:19→21:33)
[2019-03-14] MEDS: GABAPENTIN 300 MG CAP PO SCH ×3 (06:19→21:20)
[2019-03-14] MEDS: metroNIDAZOLE 500 MG TAB PO SCH ×3 (06:19→21:21)
[2019-03-14 06:23] LABS: Basophils # (auto) 0.1 uL; Basophils % (auto) 1.1 % (0.0-2.0); Eosinophils # (auto) 0.2 uL; Eosinophils % (auto) 2.4 % (0.0-7.0); Hematocrit 30.4 % (41.0-53.0); Hemoglobin 10.2 g/dL (13.5-17.5); Lymphocytes # (auto) 1.2 uL; Lymphocytes % (auto) 14.6 % (10.0-50.0); Mean Corpuscular Hemoglobin 29.9 pg (28.0-32.0); Mean Corpuscular Hgb Conc. 33.5 g/dL (32.0-36.0); Mean Corpuscular Volume 89.2 fL (80.0-100.0); Monocytes # (auto) 0.5 uL; Monocytes % (auto) 6.2 % (0.0-12.0); Neutrophils # (auto) 6.3 uL; Neutrophils % (auto) 75.7 % (37.0-80.0); Platelet Count (auto) 429 10^3/uL (140-450); Red Blood Cells 3.41 10^6/uL (4.5-5.90); Red Cell Distribution Width 17.2 % (11.8-14.3); White Blood Cell 8.3 10^3/uL (4.4-10.8)
[2019-03-14 06:24] LABS: Potassium 3.6 mmol/L (3.5-5.1)
[2019-03-14 06:31] LABS: % Iron Saturation 84.3 % (20-55)
[2019-03-14 06:41] LABS: Bilirubin, Total 0.3 mg/dL (0.2-1.0); Calcium 8.2 mg/dL (8.5-10.1); Total Protein 5.7 g/dL (6.4-8.2)
[2019-03-14] MEDS: Glucerna Carbsteady SHAKE Chocolate 8oz PO SCH ×2 (08:00→17:37)
[2019-03-14] MEDS: Pro-Stat SF 30ml Vanilla PO SCH ×2 (08:00→17:37)
[2019-03-14 09:00] VITALS: BP 135/62
--- NOTE | 2019-03-14 09:30 | NUR ---
Hospitalist at bedside
--- NOTE | 2019-03-14 09:35 | NUR ---
NEW ORDERS RECEIVED NEW ORDERS FOR ALBUMIN FROM DR LAGUNA. AWAITING SURGICAL CLEARANCE FROM DR DOWNING. [facility]
[2019-03-14] MEDS: LACTULOSE 20Gm/30ML SOLN PO SCH (10:00)
[2019-03-14] MEDS: cefTRIAXone 1GM/50ML D5W 50 ML IV SCH (10:08)
--- NOTE | 2019-03-14 10:15 | NUR ---
PT Patient refused to be OOB during morning PT visit with c/o weakness and fatigue. [facility] was informed of pt's refusal. Addendum: 03/14/19 at 1016 by MARYELLEN OREILLY PTT Amended: Links added.
[2019-03-14] MEDS: METOPROLOL TARTRATE 25 MG TAB PO SCH ×2 (10:17→21:21)
[2019-03-14] MEDS: PANTOPRAZOLE 40 MG TAB PO SCH (10:17)
[2019-03-14] MEDS: DORZOLAMIDE HCL 2% OPTH(EYE) SOL 10ML OP SCH ×2 (10:17→21:22)
[2019-03-14] MEDS: FLUCONAZOLE 100 MG TAB PO SCH (10:17)
[2019-03-14] MEDS: ALBUMIN 25% 100 ML IV SCH ×2 (12:59→21:16)
[2019-03-14 13:00] VITALS: BP 103/60
--- NOTE | 2019-03-14 15:08 | NUR ---
Nutrition Follow-up Notes Wt.: 69.1 kg based on bed scale as of 03/12/19. Pt's with immediate family member at bedside, denies any discomfort except for weakness during rounds this morning. 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 Pt's currently on Soft Consistent Std. Carb: 60 gms/meal diet with Glucerna Shakes 1 carton TID, Prostat 1 pkt BID, has inadequate PO intake aeb ~50% ave. consumed meals (x6) in last 2.5 days. Discussed importance of adequate nutrition r/t his medical condition, encouraged to increase food intake through small frequent meals as tolerated. Provide verbal and written nutrition educ. re: current prescribed therapeutic diet and she verbalized understanding. Est. Needs IBW [id number] kcal (25-30 kcal/kgBW), 78-101 gms pro (1.0-1.3gms/kgBW r/t severe hypoalb). Will continue to monitor pertinent labs and reassess nutrient need prn Labs: Gluc 165 H, Cl 109 H, Cr 0.57 L, Ca 8.2 L, ALT 11 L, Tpro 5.7 L, Alb 2.0 L. Skin: Lencho scale 18, mod risk, pt's medial sacrum incontinence associated dermatitis, right forearm abrasion, right medial abdomen incision dry and intact per library customer service clerk. Pls refer to senior recruitment consultant's notes 03/08/19 for further details re: tx plans. GI: Pt had 2x BM 03/08/19 per library customer service clerk. PES: Increased nutrient needs r/t current/chronic medical/nutritional status aeb underwt reporting wt loss, severe hypoalbuminemia and NPO Altered nutrition related lab values r/t current/chronic medical condition aeb hyperglycemia, hyperchloremia, hypokalemia, hypocalcemia, severe hypoalbuminemia and elev. Hba1c level. Will continue to monitor PO intake, skin status, pertinent labs and weight trend. F/u in 3 to 5 days. Rec.: 1.) Continue close supervision and feeding assistance prn during meals. 2.) Consider appetite stimulant prn to improved PO intake. 3.) Refer pt to CDE/RD for further nutrition education and weight monitoring upon discharge. 4.) Continue current plan of care.
--- NOTE | 2019-03-14 16:00 | NUR ---
JANETTE DRAIN EMPTIED 50 ML DARK GREEN FLUID OUT OF JANETTE DRAIN
[2019-03-14 17:00] VITALS: BP 126/74
[2019-03-14] MEDS: IRON SUCROSE COMPLEX 200 MG in SODIUM CHL 0.9% 100 ML IV SCH (17:37)
--- NOTE | 2019-03-14 18:30 | NUR ---
COMPLETE BED CHANGE PERFORMED PATIENT GIVEN FULL BATH DUE TO INCONTINENCE EPISODE OF URINE. ZGUARD APPLIED TO SACRUM AND INGUINAL AREA. TURNING AND REPOSITIONING PATIENT Q2HR AND PRN TOLERATED. PATIENT REPOSITIONED TO RIGHT SIDE WITH PRESSURE AREAS OFF LOADED ON PILLOWS INCLUDING BILAT HEELS. CONT CARE
--- NOTE | 2019-03-14 19:00 | NUR ---
JANETTE DRAINAGE TOTAL OUTPUT FROM JANETTE DRAIN FOR SHIFT IS 90 ML DARK GREEN FLUID. PATIENT LAYING COMFORTABLY IN BED IN NO ACUTE DISTRESS OR SOB NOTED. CALL LIGHT WITHIN REACH AND FALL PRECS IN PLACE PER PROTOCOL
--- NOTE | 2019-03-14 19:50 | NUR ---
MD brown at bedside. MD Brown said "he is ok to DC tomorrow".
[2019-03-14] MEDS: DOCUSATE SOD 100 MG CAP PO SCH (21:19)
[2019-03-14] MEDS: MIRTAZAPINE 30 MG TAB PO SCH (21:20)
[2019-03-14 22:30] VITALS: BP 133/71
[2019-03-15 05:31] VITALS: BP 127/71
[2019-03-15] MEDS ORDERED: ALBUMIN 25% 100 ML IV ONE (05:45)
[2019-03-15] MEDS: GABAPENTIN 300 MG CAP PO SCH ×2 (05:46→13:58)
[2019-03-15] MEDS: ALBUMIN 25% 100 ML IV SCH (05:47)
[2019-03-15] MEDS: metroNIDAZOLE 500 MG TAB PO SCH (05:47)
[2019-03-15] MEDS: InsuLIN REG 1unit/0.01ml Soln (100units/ml) SC SCH ×2 (06:33→12:20)
[2019-03-15] MEDS: IPRATROPIUM BROM 0.5 MG/2.5ML INH SOL NEB SCH ×3 (06:34→13:58)
[2019-03-15] MEDS: ALBUTEROL SULF 2.5 MG/0.5ML(0.5%) NEB SOLN NEB SCH ×3 (06:34→13:57)
[2019-03-15] MEDS: ACCU-CHEK COMFORT CURVE STRIP VI SCH ×2 (06:34→12:20)
--- NOTE | 2019-03-15 07:55 | NUR ---
Opening Shift Note Assumed care of patient, awake and alert and oriented X4. No S/S of distress/SOB or pain. Instructed on POC and to call for assist PRN, will continue to monitor for changes. J-P drain in place and will continue to empty every 2 hrs and document, green fluid in drain present. Will continue to assist with turning at least every 2 hrs.
[2019-03-15] MEDS: Pro-Stat SF 30ml Vanilla PO SCH (08:00)
[2019-03-15] MEDS: Glucerna Carbsteady SHAKE Chocolate 8oz PO SCH (08:26)
[2019-03-15 08:50] VITALS: BP 136/65
[2019-03-15] MEDS: PANTOPRAZOLE 40 MG TAB PO SCH (09:29)
[2019-03-15] MEDS: cefTRIAXone 1GM/50ML D5W 50 ML IV SCH (09:29)
[2019-03-15] MEDS: FLUCONAZOLE 100 MG TAB PO SCH (09:29)
[2019-03-15] MEDS: LACTULOSE 20Gm/30ML SOLN PO SCH (09:29)
[2019-03-15] MEDS: METOPROLOL TARTRATE 25 MG TAB PO SCH (09:30)
[2019-03-15] MEDS: DORZOLAMIDE HCL 2% OPTH(EYE) SOL 10ML OP SCH (09:31)
--- NOTE | 2019-03-15 10:40 | NUR ---
Dr Maxwell at bedside. Order received to d/c midline prior to D/C to SNF.
--- NOTE | 2019-03-15 10:58 | NUR ---
WOUND CARE NOTE: Wound care in to see patient for reevaluation of wounds and skin integrity monitoring. Patient is resting in bed in Rm. 273A. He's awake, alert and oriented. He's able to assist in turning and repositioning and his current Lencho score is 17. Patient is in no stated pain at this time. Skin tears to patient' s bilateral arms looks improving and some are closed with pink scar tissue. L upper arm skin tear now measuring 6x2cm with brown scab. R arm skin tear measuring 1x2cm also resolving. L forearm skin tear measuring 4x2cm, clean and dry, distal to it is closed skin tear, surrounding skin is pink,clean and dry. Cleansed skin tears and changed the dressing as ordered. Patient is incontinent of stool and passed small amount of pasty stool. Tiffany care given. Noted 1x1cm open partial thickness wound to medial sacrum at distal intragluteal fold. Wound appears to be moisture related. Applied Z Guard cream and covered with Opti foam gentle dressing. New photograph of wounds are taken for reference. Patient tolerated well. Repositioned for comfort. Patient's sister at bedside. RECOMMENDATION: Continuation of al wound care orders prescribed by MD, continue with skin/wound plan of care, continue monitoring by wound care while patient is hospitalized. Addendum: 03/15/19 at 1219 by Shonda Liu RN Amended: Links added.
--- NOTE | 2019-03-15 11:33 | NUR ---
Dr Flores at bedside and removed 13 tg from surgical incision site, patient tolerated procedure well.
[2019-03-15 13:00] VITALS: BP 132/60
--- NOTE | 2019-03-15 13:58 | NUR ---
re-assessment Per Lou at [facility] and Robert at [facility] patient has [facility] and needs authorization. Karen catalytic case operator has been notified to obtain auth [facility] and [facility]. Waiting on auth now. Addendum: 03/15/19 at 1359 by Irene HOWE Amended: Links added. Addendum: 03/15/19 at 1437 by Irene Sheehan SS disregard note wrong patient.
--- NOTE | 2019-03-15 14:37 | NUR ---
re-assessment Patients room number has changed to 205 bed 2 and General transport will transport patient between 430pm and 530pm. Patient and sister Alexa agree to discharge plan to [facility]. Addendum: 03/15/19 at 1443 by Irene HOWE Amended: Links added.
--- NOTE | 2019-03-15 15:28 | NUR ---
Report given to Adi nurse at [facility]. Made aware of J-P care of draining q6hr and documenting, results to be taken to follow up with Dr Flores in [address] Flores only one to remove J-P drain.
[2019-03-15 16:37] VITALS: BP 126/63
--- NOTE | 2019-03-15 16:40 | NUR ---
Midline removed, catheter tip intact and patient tolerated procedure well.
--- NOTE | 2019-03-15 17:30 | NUR ---
Discharge instructions given as ordered. Encourage to follow up with Dr Flores in 1 week as instructed. All questions and concerns addressed. Patient verbalized understanding. Medication reconciliation form completed and copy given to patient. Midline removed with catheter intact, pressure dressing applied. Patient taken to vehicle via wheelchair with all personal belongings, accompanied by transportation staff and family member. No distress noted at time of departure.
== END 2019-03-15 18:19 | DRG 853 ==
LOC: ER 17:33 → EDBD 17:33 → TELE 02-24 01:07 → TELE-WESTW 02-24 02:45 → ICU WEST 03-01 16:50 → TELE-WESTW 03-06 17:12 → WEST WING 03-09 14:58
PROVIDERS: ADMIT Nurse Practitioner Family; ATTEND Family Medicine
PROC: 0BH17EZ Insertion of Endotracheal Airway into Trachea, Via Natural or Artificial Opening (ICD-10-PCS; 2019-03-01)
PROC: 30253N1 (ICD-10-PCS; 2019-03-01)
PROC: 0FT40ZZ Resection of Gallbladder, Open Approach (ICD-10-PCS; 2019-03-01)
PROC: 0DBU0ZZ Excision of Omentum, Open Approach (ICD-10-PCS; 2019-03-01)
PROC: 0W9G0ZZ Drainage of Peritoneal Cavity, Open Approach (ICD-10-PCS; 2019-03-01)
PROC: 5A1945Z Respiratory Ventilation, 24-96 Consecutive Hours (ICD-10-PCS; principal; 2019-03-01 08:15)
PROC: 02HV33Z Insertion of Infusion Device into Superior Vena Cava, Percutaneous Approach (ICD-10-PCS; 2019-03-03)
DX: A41.1 Sepsis due to other specified staphylococcus (principal); E43 Unspecified severe protein-calorie malnutrition; K65.1 Peritoneal abscess; J96.01 Acute respiratory failure with hypoxia; J18.9 Pneumonia, unspecified organism; E87.1 Hypo-osmolality and hyponatremia; E87.2 Acidosis; J98.11 Atelectasis; K80.01 Calculus of gallbladder with acute cholecystitis with obstruction; K57.30 Diverticulosis of large intestine without perforation or abscess without bleeding; N40.0 Benign prostatic hyperplasia without lower urinary tract symptoms; B37.9 Candidiasis, unspecified; G89.29 Other chronic pain; D63.8 Anemia in other chronic diseases classified elsewhere; M46.99 Unspecified inflammatory spondylopathy, multiple sites in spine; I11.9 Hypertensive heart disease without heart failure; E88.09 Other disorders of plasma-protein metabolism, not elsewhere classified; E61.1 Iron deficiency; M54.9 Dorsalgia, unspecified; N30.91 Cystitis, unspecified with hematuria; I25.10 Atherosclerotic heart disease of native coronary artery without angina pectoris; K82.9 Disease of gallbladder, unspecified; E11.9 Type 2 diabetes mellitus without complications; Z68.25 Body mass index [BMI] 25.0-25.9, adult; Z68.21 Body mass index [BMI] 21.0-21.9, adult; Z80.8 Family history of malignant neoplasm of other organs or systems; Z79.899 Other long term (current) drug therapy
CPT/HCPCS: 36415; 36600; 71045; 72070; 74176; 74177; 74181; 76604; 76705; 78226; 80048; 80053; 80202; 81001; 82040; 82150; 82607; 82728; 82805; 82962; 83036; 83540; 83550; 83605; 83615; 83690; 83735; 84100; 84132; 84478; 85007; 85025; 85027; 85045; 85610; 85730; 86301; 86850; 86880; 86900; 86901; 86920; 87040; 87070; 87077; 87081; 87086; 87186; 87205; 93005; 93306; 93971; 94002; 94003; 94640; 94761; 96361; 96365; 96367; 96375; 97110; 97116; 97530; A6257; C9113; G0378; J0330; J0690; J0696; J1100; J1450; J1815; J1956; J2250; J2405; J2543; J2704; J3480; J3490; J7060; J7131; P9047

== ENCOUNTER 2021-02-20 18:43 | Inpatient (IN) | payer MEDICARE, MEDICAID ==
[~2021-02-20] VITALS: Ht 175.3 cm; Wt 65.1 kg
[~2021-02-20 18:43] MED LIST: DORZ2SOL18 LEFTEYE; GABA-339 PO; METF-929 PO; MIRT1TAB38 PO; OMEP20TA PO; REPA2TAB8 PO
[2021-02-20 20:22] LABS: Basophils # (auto) 0.1 10 ^3/uL (0-0.2); Basophils % (auto) 0.7 % (0.0-2.0); Eosinophils # (auto) 0.2 10 ^3/uL (0-0.8); Hematocrit 39.2 % (41.0-53.0); Hemoglobin 13.4 g/dL (13.5-17.5); Lymphocytes # (auto) 1.8 10 ^3/uL (0.4-5.4); Lymphocytes % (auto) 11.5 % (10.0-50.0); Mean Corpuscular Hemoglobin 32.5 pg (28.0-32.0); Mean Corpuscular Hgb Conc. 34.1 g/dL (32.0-36.0); Mean Corpuscular Volume 95.3 fL (80.0-100.0); Monocytes # (auto) 0.5 10 ^3/uL (0-1.3); Monocytes % (auto) 3.4 % (0.0-12.0); Neutrophils # (auto) 12.9 10 ^3/uL (1.6-8.6); Neutrophils % (auto) 83.4 % (37.0-80.0); Platelet Count (auto) 213 10^3/uL (140-450); Red Blood Cells 4.12 10^6/uL (4.5-5.90); Red Cell Distribution Width 14.1 % (11.8-14.3); White Blood Cell 15.4 10^3/uL (4.4-10.8)
[2021-02-20 20:53] LABS: Alanine Aminotransferase 25 U/L (16-61); Albumin 4.1 g/dL (3.4-5.0); Anion Gap 8 (5-15); Blood Urea Nitrogen 34 mg/dL (7-18); Calcium 9.5 mg/dL (8.5-10.1); Carbon Dioxide 23 mmol/L (21-32); Chloride 106 mmol/L (98-107); Glucose 202 mg/dL (74-106); Potassium 5.5 mmol/L (3.5-5.1); Sodium 137 mmol/L (136-145)
[2021-02-20 21:01] LABS: Alkaline Phosphatase 86 U/L (45-117); Aspartate Aminotransferase 25 U/L (15-37); Bilirubin, Total 0.4 mg/dL (0.2-1.0); GFR African American 71 mL/min; GFR Non-African American 59 mL/min; Total Protein 8.7 g/dL (6.4-8.2)
[2021-02-20] MEDS ORDERED: SODIUM CHLORIDE 0.9% 1,000 ML IVB ONE (22:00)
[2021-02-20] MEDS ORDERED: ONDANSETRON HCL 4 MG/2 ML VIAL IV ONE (22:00)
[2021-02-20] MEDS ORDERED: SODIUM ZIRCONIUM CYCL 10 GM PAK PO ONE (22:00)
[2021-02-21 01:21] LABS: Urine Bacteria NONE SEEN /hpf (None Seen); Urine Blood Negative /uL (Negative); Urine Specific Gravity 1.006 (1.001-1.035); Urine WBC 5 /hpf (0 - 3)
[2021-02-21] MEDS ORDERED: MORPHINE SULFATE 4 MG/ML SYR/VIAL IV PRN (07:45)
[2021-02-21] MEDS ORDERED: ONDANSETRON HCL 4 MG/2 ML VIAL IV PRN (07:45)
[2021-02-21] MEDS ORDERED: DEXTROSE (50%) 50ML SYRG IV PRN (07:45)
[2021-02-21] MEDS ORDERED: NITROGLYCERIN 0.4 MG SL TAB SL PRN (07:45)
[2021-02-21] MEDS ORDERED: MORPHINE SULF INJ 2 MG/ML SYRINGE 1ML IV PRN (07:45)
[2021-02-21] MEDS ORDERED: SODIUM CHLORIDE 0.9% 1,000 ML IV ONE (07:45)
[2021-02-21] MEDS ORDERED: HYDROcodone-ACET 5/325MG TAB PO PRN (07:45)
[2021-02-21] MEDS ORDERED: ACETAMINOPHEN 325 MG TAB PO PRN (07:45)
[2021-02-21] MEDS: cefTRIAXone 1GM/50ML D5W 50 ML IV SCH (09:00)
[2021-02-21 09:43] LABS: Basophils # (auto) 0.1 10 ^3/uL (0-0.2); Basophils % (auto) 0.7 % (0.0-2.0); Eosinophils # (auto) 0.3 10 ^3/uL (0-0.8); Hematocrit 36.6 % (41.0-53.0); Hemoglobin 12.2 g/dL (13.5-17.5); Lymphocytes # (auto) 2.2 10 ^3/uL (0.4-5.4); Lymphocytes % (auto) 26.6 % (10.0-50.0); Mean Corpuscular Hemoglobin 31.8 pg (28.0-32.0); Mean Corpuscular Hgb Conc. 33.4 g/dL (32.0-36.0); Mean Corpuscular Volume 95.2 fL (80.0-100.0); Monocytes # (auto) 0.5 10 ^3/uL (0-1.3); Monocytes % (auto) 6.1 % (0.0-12.0); Neutrophils # (auto) 5.3 10 ^3/uL (1.6-8.6); Neutrophils % (auto) 63.6 % (37.0-80.0); Platelet Count (auto) 205 10^3/uL (140-450); Red Blood Cells 3.84 10^6/uL (4.5-5.90); Red Cell Distribution Width 13.8 % (11.8-14.3); White Blood Cell 8.4 10^3/uL (4.4-10.8)
[2021-02-21 10:41] LABS: Albumin 3.5 g/dL (3.4-5.0); Calcium 9.1 mg/dL (8.5-10.1); Potassium 4.6 mmol/L (3.5-5.1)
[2021-02-21 10:44] LABS: BUN/Creatinine Ratio 28.8; Bilirubin, Total 0.4 mg/dL (0.2-1.0); Total Protein 7.4 g/dL (6.4-8.2)
[2021-02-21] MEDS: HEPARIN SODIUM (PORCINE) 5000 UNITS/ML 1ML VIAL SC SCH ×2 (11:00→22:09)
[2021-02-21] MEDS: ACCU-CHEK COMFORT CURVE STRIP VI SCH ×3 (11:22→22:09)
[2021-02-21] MEDS: FAMOTIDINE (10MG/ML) 2ML VL IV SCH (11:22)
[2021-02-21] MEDS: InsuLIN REG 1unit/0.01ml Soln (100units/ml) SC SCH ×3 (11:30→22:09)
[2021-02-21 12:56] VITALS: BP 154/81
[2021-02-21] MEDS: metroNIDAZOLE 500MG/100ML 100 ML IV SCH ×2 (14:13→22:08)
[2021-02-21 14:54] LABS: Urine Bacteria NONE SEEN /hpf (None Seen); Urine Blood Negative /uL (Negative); Urine Specific Gravity 1.011 (1.001-1.035); Urine WBC 13 /hpf (0 - 3)
[2021-02-21] MEDS ORDERED: MULT-1018 PO (15:19)
[2021-02-21] MEDS ORDERED: OMEGCAP2 PO (15:19)
[2021-02-21] MEDS ORDERED: CYA100I PO (15:19)
[2021-02-21 16:24] VITALS: BP 148/79
[2021-02-21 20:00] VITALS: BP 151/73
[2021-02-21 22:00] VITALS: BP 151/73
[2021-02-22 05:00] VITALS: BP 161/71
[2021-02-22] MEDS ORDERED: hydrALAZINE HCL 20 MG/ML VL IV PRN (05:15)
[2021-02-22] MEDS: metroNIDAZOLE 500MG/100ML 100 ML IV SCH ×3 (05:55→21:26)
[2021-02-22] MEDS: InsuLIN REG 1unit/0.01ml Soln (100units/ml) SC SCH ×4 (06:30→22:10)
[2021-02-22] MEDS: ACCU-CHEK COMFORT CURVE STRIP VI SCH ×4 (06:30→22:06)
[2021-02-22 07:47] LABS: Basophils # (auto) 0.1 10 ^3/uL (0-0.2); Basophils % (auto) 0.7 % (0.0-2.0); Eosinophils # (auto) 0.3 10 ^3/uL (0-0.8); Eosinophils % (auto) 4.6 % (0.0-7.0); Hematocrit 35.9 % (41.0-53.0); Hemoglobin 12.2 g/dL (13.5-17.5); Lymphocytes # (auto) 1.9 10 ^3/uL (0.4-5.4); Lymphocytes % (auto) 27.2 % (10.0-50.0); Mean Corpuscular Hemoglobin 31.7 pg (28.0-32.0); Mean Corpuscular Hgb Conc. 33.9 g/dL (32.0-36.0); Mean Corpuscular Volume 93.5 fL (80.0-100.0); Monocytes # (auto) 0.5 10 ^3/uL (0-1.3); Monocytes % (auto) 7.4 % (0.0-12.0); Neutrophils # (auto) 4.2 10 ^3/uL (1.6-8.6); Neutrophils % (auto) 60.1 % (37.0-80.0); Platelet Count (auto) 209 10^3/uL (140-450); Red Blood Cells 3.84 10^6/uL (4.5-5.90); Red Cell Distribution Width 13.8 % (11.8-14.3)
[2021-02-22 08:05] LABS: Albumin 3.6 g/dL (3.4-5.0); Calcium 9.1 mg/dL (8.5-10.1)
[2021-02-22 08:09] LABS: BUN/Creatinine Ratio 22.2; Bilirubin, Total 0.3 mg/dL (0.2-1.0); Total Protein 7.5 g/dL (6.4-8.2)
[2021-02-22] MEDS: cefTRIAXone 1GM/50ML D5W 50 ML IV SCH (09:04)
[2021-02-22] MEDS: FAMOTIDINE (10MG/ML) 2ML VL IV SCH (09:04)
[2021-02-22 09:14] VITALS: BP 139/79
[2021-02-22] MEDS: HEPARIN SODIUM (PORCINE) 5000 UNITS/ML 1ML VIAL SC SCH ×2 (09:54→21:33)
[2021-02-22 13:06] VITALS: BP 139/73
[2021-02-22] MEDS ORDERED: MORPHINE SULF INJ 2 MG/ML SYRINGE 1ML IV PRN (16:15)
[2021-02-22 16:31] VITALS: BP 98/57
[2021-02-22 22:00] VITALS: BP 122/72
[2021-02-22] MEDS ORDERED: INSULIN LANTUS (GLARGINE) 1 /0.01ml (100units/ml) SC SCH (22:00)
[2021-02-23 05:00] VITALS: BP 119/70
[2021-02-23] MEDS: metroNIDAZOLE 500MG/100ML 100 ML IV SCH ×2 (05:34→13:49)
[2021-02-23] MEDS: ACCU-CHEK COMFORT CURVE STRIP VI SCH ×3 (06:21→18:35)
[2021-02-23] MEDS: InsuLIN REG 1unit/0.01ml Soln (100units/ml) SC SCH ×3 (06:21→17:00)
[2021-02-23 09:00] VITALS: BP 106/65
[2021-02-23] MEDS: FAMOTIDINE (10MG/ML) 2ML VL IV SCH (09:19)
[2021-02-23] MEDS: cefTRIAXone 1GM/50ML D5W 50 ML IV SCH (09:19)
[2021-02-23] MEDS: HEPARIN SODIUM (PORCINE) 5000 UNITS/ML 1ML VIAL SC SCH (09:20)
[2021-02-23 12:33] VITALS: BP 106/65
[2021-02-23 13:00] VITALS: BP 131/76
[2021-02-23 17:24] VITALS: BP 113/62
== END 2021-02-23 18:45 | disposition home or self-care (01) | DRG 872 ==
LOC: ER 18:43 → TELE-CENTR 02-21 07:44
PROVIDERS: ADMIT Nurse Practitioner Family; ATTEND Internal Medicine
DX: A41.9 Sepsis, unspecified organism (principal); K40.90 Unilateral inguinal hernia, without obstruction or gangrene, not specified as recurrent; Z20.822 Contact with and (suspected) exposure to COVID-19; E87.5 Hyperkalemia; E11.65 Type 2 diabetes mellitus with hyperglycemia; I10 Essential (primary) hypertension; K52.9 Noninfective gastroenteritis and colitis, unspecified; R39.15 Urgency of urination; H54.8 Legal blindness, as defined in USA; Z90.49 Acquired absence of other specified parts of digestive tract
CPT/HCPCS: 36415; 74176; 80053; 81001; 82962; 83036; 84484; 85025; 87040; 87086; 87426; 93005; 96361; 96365; 96366; 96375; G0378; J0696; J1815; J3490